=== PATIENT | male | born 1940 | race Caucasian/White ===

== ENCOUNTER 2020-12-23 13:02 | Day surgery (SDC) | payer MEDICARE, OTHER ==
[~2020-12-23] VITALS: Ht 175.3 cm; Wt 80.6 kg
[~2020-12-23 13:02] MED LIST: IBUP200; NAPR220; ROSU5; SULTRIDS PO
[2020-12-23] MEDS ORDERED: TAMS.4ER (14:02)
[2020-12-23] MEDS ORDERED: EUTHYROX50 MCG (14:02)
[2020-12-23] MEDS ORDERED: OMEP20ER (14:04)
== END 2020-12-23 15:00 | disposition home or self-care (01) ==
LOC: ORSCSDS 13:02
PROVIDERS: Internal Medicine Gastroenterology
PROC: 0D758ZZ Dilation of Esophagus, Via Natural or Artificial Opening Endoscopic (ICD-10-PCS; principal; 2020-12-23 14:45)
PROC: 0DB58ZX Excision of Esophagus, Via Natural or Artificial Opening Endoscopic, Diagnostic (ICD-10-PCS; principal; 2020-12-23 14:45)
DX: R13.10 Dysphagia, unspecified (principal); E78.5 Hyperlipidemia, unspecified; E03.9 Hypothyroidism, unspecified; K20.90 Esophagitis, unspecified without bleeding; Z79.899 Other long term (current) drug therapy
CPT/HCPCS: 88305; J0330; J0461; J2405; J2704; J7120

== ENCOUNTER 2022-10-18 07:07 | Inpatient (IN) | payer MEDICARE, OTHER ==
[2022-10-18] VITALS (7 sets, daily range): BP systolic 131–165; BP diastolic 63–87
[~2022-10-18] VITALS: Ht 177.8 cm; Wt 77.6 kg
[~2022-10-18 07:07] MED LIST changes: +LEVSOD100 PO; +OCUFLOX510 RIGHTEYE; +OMEP20ER PO; +TAMS.4ER
[2022-10-18] MEDS ORDERED: Oxybutynin Chlo15 MG PO (08:10)
[2022-10-18] MEDS ORDERED: LATANOPROST2.5 M3 (08:11)
[2022-10-18] MEDS ORDERED: BRIMONIDINE TART5 M2 (08:11)
[2022-10-18 08:21] LABS: Hematocrit 20.5 % (37.0-53.0); Hemoglobin 6.3 g/dL (13.5-17.5); Mean Corpuscular HGB 28.3 pg (26.0-34.0); Mean Corpuscular HGB Conc 30.7 g/dL (31.5-36.5); Mean Corpuscular Volume 92 fL (80-100); Mean Platelet Volume 9.8 fL (9.1-12.4); Platelet Count 175 K/mm3 (150-400); RDW Coefficient Variation 18.4 % (11.7-14.2); RDW Standard Deviation 56.1 fL (35.1-46.3); Red Blood Cell Count 2.23 M/mm3 (4.30-5.90)
[2022-10-18 08:27] LABS: Albumin, Blood 3.3 g/dL (3.4-5.0); Albumin/Globulin Ratio 1.1 (0.8-1.8); Bilirubin, Total 0.7 mg/dL (0.1-1.0); Calcium, Blood 8.2 mg/dL (8.5-10.1); Creatinine, Blood 1.66 mg/dL (0.60-1.20); Globulin, Blood 3.1 g/dL (2.2-4.0); Potassium, Blood 3.5 mmol/L (3.5-5.5); Total Protein, Blood 6.4 g/dL (6.4-8.2)
[2022-10-18 08:44] LABS: BAND PERCENT MAN 18 % (0-8); BASOPHILS PERCENT MAN 0 % (0-2); BLASTS PERCENT MAN 2 % (0-0); EOSINOPHILS PERCENT MAN 0 % (0-6); LYMPHOCYTES PERCENT MAN 7 % (21-46); METAMYELOCYTE PERCENT MAN 6 % (0-0); MONOCYTES PERCENT MAN 2 % (4-13); MYELOCYTE PERCENT MAN 14 % (0-0); PROMYELOCYTE PERCENT MAN 2 % (0-0); SEG NEUTROPHILS PERCENT MAN 49 % (41-73); TOTAL CELLS COUNTED 100
[2022-10-18 08:47] LABS: NEUTROPHILS ABSOLUTE MAN 75.56 K/mm3 (1.96-9.15)
[2022-10-18 08:50] LABS: LYMPHOCYTES ABSOLUTE MAN 7.89 K/mm3 (0.84-5.20); METAMYELOCYTE ABSOLUTE MAN 6.76 K/mm3 (0.00-0.00); MONOCYTES ABSOLUTE MAN 2.25 K/mm3 (0.16-1.47); MYELOCYTE ABSOLUTE MAN 15.78 K/mm3 (0.00-0.00); PROMYELOCYTE ABSOLUTE MAN 2.25 K/mm3 (0.00-0.00); White Blood Cell Count 112.78 K/mm3 (4.00-11.30)
[2022-10-18 08:56] LABS: Free Thyroxine 1.38 ng/dL (0.70-1.60); Thyroid Stimulating Hormone 3.63 uIU/mL (0.360-4.800); Triiodothyronine, Free 2.03 pg/mL (2.18-3.98)
[2022-10-18 10:45] LABS: International Normalized Ratio 1.14; Prothrombin Time Results 11.9 Sec (9.7-11.5)
--- NOTE | 2022-10-18 13:00 | NUR ---
pt arrived to 206 via wheelchair from ED, in attendence, pt a/ox4, pleasant and cooperative with care, follows commands well, denies pain, just sob with activity, and has lost about ten pounds in the last few months, lungs are clear t/o, resp even and unlabored, no cough noted, hrr, no edema noted, piv is clear and patent, btx4, abd flat soft nontender, voids without diff, skin c/w/d, norm, jania, oriented to room layout and call system.
--- NOTE | 2022-10-18 17:40 | NUR ---
Started blood transfusion, after going over risks and need to call nurse if any acute changes, and what to look for, consent was signed, v.s. stable, did have an elevated temp, but room was very warm, he is sitting up on the side of the bed eating dinner, spouce at bedside. call light in reach.
--- NOTE | 2022-10-18 18:06 | NUR ---
pt tolerating transfusion, doing ok, no needs, ate dinner without diff, no acute changes, call light in reach.
[2022-10-19 04:28] VITALS: BP 149/76
--- NOTE | 2022-10-19 04:43 | NUR ---
SHIFT SUMMARY: RADHA IS A&OX4. VSS, NO ACUTE EVENTS OVERNIGHT. IV TO R AC PATENT. HE IS TOLERATING PO INTAKE WELL, INDEPENDENT IN THE ROOM, AND REPORTS URINATING WITHOUT DIFFICULTY. HE STATES THAT HE HAD A BM THE MORNING OF 10/18/22. HE IS LYING IN BED WITH THE CALL LIGHT IN REACH. WCTM UNTIL REPORT IS GIVEN TO DAY SHIFT RN.
[2022-10-19 05:24] LABS: Hematocrit 24.6 % (37.0-53.0); Hemoglobin 7.6 g/dL (13.5-17.5); Mean Corpuscular HGB 28.6 pg (26.0-34.0); Mean Corpuscular HGB Conc 30.9 g/dL (31.5-36.5); Mean Corpuscular Volume 93 fL (80-100); Mean Platelet Volume 9.4 fL (9.1-12.4); NRBC ABSOLUTE 5.89 K/mm3 (0.00-0.02); NRBC Auto 5.1 /100 WBC (0.0-0.2); Platelet Count 161 K/mm3 (150-400); RDW Coefficient Variation 18.1 % (11.7-14.2); Red Blood Cell Count 2.66 M/mm3 (4.30-5.90)
[2022-10-19 05:37] LABS: White Blood Cell Count 116.07 K/mm3 (4.00-11.30)
[2022-10-19 05:50] LABS: BAND PERCENT MAN 4 % (0-8); BASOPHILS PERCENT MAN 0 % (0-2); BLASTS PERCENT MAN 8 % (0-0); EOSINOPHILS ABSOLUTE MAN 1.16 K/mm3 (0.00-0.68); EOSINOPHILS PERCENT MAN 1 % (0-6); LYMPHOCYTES ABSOLUTE MAN 2.32 K/mm3 (0.84-5.20); LYMPHOCYTES PERCENT MAN 2 % (21-46); MONOCYTES PERCENT MAN 0 % (4-13); MYELOCYTE ABSOLUTE MAN 31.33 K/mm3 (0.00-0.00); MYELOCYTE PERCENT MAN 27 % (0-0); NEUTROPHILS ABSOLUTE MAN 71.96 K/mm3 (1.96-9.15); SEG NEUTROPHILS PERCENT MAN 58 % (41-73); TOTAL CELLS COUNTED 100
[2022-10-19 05:53] LABS: Albumin, Blood 3.4 g/dL (3.4-5.0); Albumin/Globulin Ratio 1.1 (0.8-1.8); Bilirubin, Total 0.9 mg/dL (0.1-1.0); Bun/Creatinine Ratio 11.6 (12.0-20.0); Calcium, Blood 8.5 mg/dL (8.5-10.1); Creatinine, Blood 1.55 mg/dL (0.60-1.20); Globulin, Blood 3.1 g/dL (2.2-4.0); Potassium, Blood 3.5 mmol/L (3.5-5.5); Total Protein, Blood 6.5 g/dL (6.4-8.2)
[2022-10-19 07:39] VITALS: BP 150/68
--- NOTE | 2022-10-19 12:15 | NUR ---
THIS RN SPOKE W/ DR. WHITTINGTON PT SCHEDULED W/ ONCOLOGY ON WED. PLAN TO HYDRATE OVERNIGHT LIKELY DC TOMORROW W/ IMPROVED KIDNEY FUNCTION.
[2022-10-19 14:38] VITALS: BP 140/74
[2022-10-19 14:48] LABS: Performing Lab SYMBIODX; Test Name FLOW
--- NOTE | 2022-10-19 18:38 | NUR ---
SHIFT SUMMARY PT A&OX4 AND IN PLEASENT MOOD T/O SHIFT. NS @ 75 OVERNIGHT RECHECK KIDNEY FUNCTION IN AM. IND. TELE IN PLACE. TOLERATING PO INTAKE WELL. AT BEDSIDE T/O SHIFT. CALL LIGHT W/IN REACH. ONCOLOGY APPT SET FOR WED OUT PT- NOTIFIED.
[2022-10-19 19:35] VITALS: BP 153/75
[2022-10-20 03:01] VITALS: BP 147/73
--- NOTE | 2022-10-20 04:15 | NUR ---
INVESTIGATION DIVISION SERGEANT SUMMARY NO ACUTE EVENTS THIS SHIFT. A&OX4. PATIENT EFFECTIVELY COMMUNICATES NEEDS. VSS. RR EVEN AND UNLABORED ON RA. TELE REVEALS SINUS RHYTHM, HR 90'S. NS INFUSING @ 75ML/HR. NO PAIN REPORTED TO THIS RN. BED LOW AND LOCKED. CALL LIGHT WITHIN REACH. THIS RN WILL CONTINUE TO MONITOR.
[2022-10-20 05:09] LABS: Hemoglobin 7.4 g/dL (13.5-17.5); Mean Corpuscular HGB 28.4 pg (26.0-34.0); Mean Corpuscular HGB Conc 30.8 g/dL (31.5-36.5); Mean Corpuscular Volume 92 fL (80-100); Mean Platelet Volume 10.2 fL (9.1-12.4); NRBC ABSOLUTE 6.31 K/mm3 (0.00-0.02); NRBC Auto 5.1 /100 WBC (0.0-0.2); Platelet Count 163 K/mm3 (150-400); RDW Coefficient Variation 18.4 % (11.7-14.2); RDW Standard Deviation 57.6 fL (35.1-46.3); Red Blood Cell Count 2.61 M/mm3 (4.30-5.90)
[2022-10-20 05:18] LABS: White Blood Cell Count 124.48 K/mm3 (4.00-11.30)
[2022-10-20 05:33] LABS: Albumin, Blood 3.3 g/dL (3.4-5.0); Albumin/Globulin Ratio 1.1 (0.8-1.8); Bilirubin, Total 0.7 mg/dL (0.1-1.0); Bun/Creatinine Ratio 10.4 (12.0-20.0); Calcium, Blood 8.5 mg/dL (8.5-10.1); Creatinine, Blood 1.63 mg/dL (0.60-1.20); Globulin, Blood 3.1 g/dL (2.2-4.0); Magnesium, Blood 2.2 mg/dL (1.6-2.4); Phosphorus, Blood 4.5 mg/dL (2.5-4.9); Potassium, Blood 3.4 mmol/L (3.5-5.5); Total Protein, Blood 6.4 g/dL (6.4-8.2); Uric Acid, Blood 8.5 mg/dL (3.5-7.2)
[2022-10-20 05:41] LABS: BAND PERCENT MAN 5 % (0-8); BASOPHILS ABSOLUTE MAN 1.24 K/mm3 (0.00-0.23); BASOPHILS PERCENT MAN 1 % (0-2); BLASTS PERCENT MAN 6 % (0-0); EOSINOPHILS PERCENT MAN 0 % (0-6); LYMPHOCYTES ABSOLUTE MAN 4.97 K/mm3 (0.84-5.20); LYMPHOCYTES PERCENT MAN 4 % (21-46); METAMYELOCYTE ABSOLUTE MAN 14.93 K/mm3 (0.00-0.00); METAMYELOCYTE PERCENT MAN 12 % (0-0); MONOCYTES ABSOLUTE MAN 1.24 K/mm3 (0.16-1.47); MONOCYTES PERCENT MAN 1 % (4-13); MYELOCYTE ABSOLUTE MAN 23.65 K/mm3 (0.00-0.00); MYELOCYTE PERCENT MAN 19 % (0-0); PROMYELOCYTE ABSOLUTE MAN 1.24 K/mm3 (0.00-0.00); PROMYELOCYTE PERCENT MAN 1 % (0-0); SEG NEUTROPHILS PERCENT MAN 51 % (41-73); TOTAL CELLS COUNTED 100
[2022-10-20 07:29] VITALS: BP 141/75
[2022-10-20] MEDS ORDERED: CEFP200 PO (11:50)
[2022-10-20] MEDS ORDERED: AZIT500 PO (11:50)
--- NOTE | 2022-10-20 12:26 | NUR ---
DC SUMMARY; Tele and IV dc'd. All discharge instructions reviewed with return verbal understanding. Pt declined w/c trasfer to lobby. Ambulated with SO with steady gait.
== END 2022-10-20 12:35 | disposition home or self-care (01) | DRG 841 ==
LOC: ER 07:07 → MEDS 11:19
PROVIDERS: Hospitalist; Student in an Organized Health Care Education/Training Program; ADMIT Family Medicine
PROC: 30233N1 Transfusion of Nonautologous Red Blood Cells into Peripheral Vein, Percutaneous Approach (ICD-10-PCS; principal; 2022-10-20)
DX: C92.10 Chronic myeloid leukemia, BCR/ABL-positive, not having achieved remission (principal); N17.9 Acute kidney failure, unspecified; I48.91 Unspecified atrial fibrillation; E03.9 Hypothyroidism, unspecified; Z66 Do not resuscitate; K21.00 Gastro-esophageal reflux disease with esophagitis, without bleeding; I12.9 Hypertensive chronic kidney disease with stage 1 through stage 4 chronic kidney disease, or unspecified chronic kidney disease; N18.30 Chronic kidney disease, stage 3 unspecified; B95.61 Methicillin susceptible Staphylococcus aureus infection as the cause of diseases classified elsewhere; I49.3 Ventricular premature depolarization; Z68.24 Body mass index [BMI] 24.0-24.9, adult; R94.31 Abnormal electrocardiogram [ECG] [EKG]; R63.4 Abnormal weight loss; E78.5 Hyperlipidemia, unspecified; J42 Unspecified chronic bronchitis; M40.209 Unspecified kyphosis, site unspecified; D63.0 Anemia in neoplastic disease; M54.50 Low back pain, unspecified; M19.042 Primary osteoarthritis, left hand; M19.041 Primary osteoarthritis, right hand; R13.10 Dysphagia, unspecified; H91.90 Unspecified hearing loss, unspecified ear; N32.81 Overactive bladder; Z79.890 Hormone replacement therapy; N52.9 Male erectile dysfunction, unspecified; Z79.899 Other long term (current) drug therapy; Z92.3 Personal history of irradiation; Z86.010 Personal history of colon polyps; Z98.1 Arthrodesis status; Z85.46 Personal history of malignant neoplasm of prostate; Z98.890 Other specified postprocedural states
CPT/HCPCS: 36415; 36430; 71046; 76770; 80053; 82436; 83735; 83880; 84100; 84300; 84439; 84443; 84481; 84550; 85025; 85610; 85730; 86850; 86900; 86901; 86923; 87070; 87077; 87147; 87186; 87205; 93005; 93010; 93306; 96365; 96366; 97110; 97162; 97530; 99285-25; A9270; J0456; J0696; J3475; J7030; J7040; J7050; P9016

== ENCOUNTER 2022-11-19 11:12 | Day surgery (SDC) | payer MEDICARE, OTHER ==
[2022-11-19] VITALS (7 sets, daily range): BP systolic 124–146; BP diastolic 48–69
[~2022-11-19 11:12] MED LIST changes: +AZIT500 PO; +BRIMONIDINE TART5 M2; +CEFP200 PO; +LATANOPROST2.5 M3; +Oxybutynin Chlo15 MG PO
== END 2022-11-19 17:36 | disposition home or self-care (01) ==
LOC: ATC 11:12
DX: C92.10 Chronic myeloid leukemia, BCR/ABL-positive, not having achieved remission (principal); K21.9 Gastro-esophageal reflux disease without esophagitis; E78.5 Hyperlipidemia, unspecified; E03.9 Hypothyroidism, unspecified; Z79.890 Hormone replacement therapy; Z87.891 Personal history of nicotine dependence; Z79.899 Other long term (current) drug therapy
CPT/HCPCS: 36430; 86850; 86900; 86901; 86923; J7050; P9016

== ENCOUNTER 2022-11-23 00:15 | Day surgery (SDC) | payer MEDICARE, OTHER ==
[2022-11-23] VITALS (7 sets, daily range): BP systolic 115–137; BP diastolic 52–68
[2022-11-23 12:20] LABS: NRBC Auto 2.8 /100 WBC (0.0-0.2)
[2022-11-23 12:27] LABS: Hematocrit 20.7 % (37.0-53.0); Hemoglobin 6.4 g/dL (13.5-17.5); Mean Corpuscular HGB 31.1 pg (26.0-34.0); Mean Corpuscular HGB Conc 30.9 g/dL (31.5-36.5); Mean Corpuscular Volume 101 fL (80-100); Mean Platelet Volume 10.7 fL (9.1-12.4); NRBC ABSOLUTE 6.68 K/mm3 (0.00-0.02); Platelet Count 172 K/mm3 (150-400); RDW Coefficient Variation 22.9 % (11.7-14.2); RDW Standard Deviation 72.1 fL (35.1-46.3); Red Blood Cell Count 2.06 M/mm3 (4.30-5.90)
[2022-11-23 12:49] LABS: White Blood Cell Count 242.81 K/mm3 (4.00-11.30)
[2022-11-23 15:59] LABS: BAND PERCENT MAN 9 % (0-8); BASOPHILS PERCENT MAN 0 % (0-2); BLASTS PERCENT MAN 4 % (0-0); EOSINOPHILS PERCENT MAN 0 % (0-6); LYMPHOCYTES ABSOLUTE MAN 12.14 K/mm3 (0.84-5.20); LYMPHOCYTES PERCENT MAN 5 % (21-46); MONOCYTES PERCENT MAN 0 % (4-13); MYELOCYTE PERCENT MAN 50 % (0-0); NEUTROPHILS ABSOLUTE MAN 94.69 K/mm3 (1.96-9.15); PROMYELOCYTE ABSOLUTE MAN 4.85 K/mm3 (0.00-0.00); PROMYELOCYTE PERCENT MAN 2 % (0-0); SEG NEUTROPHILS PERCENT MAN 30 % (41-73); TOTAL CELLS COUNTED 100
== END 2022-11-23 18:04 | disposition home or self-care (01) ==
LOC: ATC 00:15
PROVIDERS: Internal Medicine Hematology & Oncology
DX: C92.10 Chronic myeloid leukemia, BCR/ABL-positive, not having achieved remission (principal); K21.9 Gastro-esophageal reflux disease without esophagitis; E03.9 Hypothyroidism, unspecified
CPT/HCPCS: 36415; 85025; 86850; 86900; 86901; 86923; J7050; P9016

== ENCOUNTER 2022-12-03 03:44 | Day surgery (SDC) | payer MEDICARE, OTHER ==
[2022-12-01 13:30] LABS: Hematocrit 22.9 % (37.0-53.0); Hemoglobin 7.2 g/dL (13.5-17.5); Mean Corpuscular HGB 29.6 pg (26.0-34.0); Mean Corpuscular HGB Conc 31.4 g/dL (31.5-36.5); Mean Corpuscular Volume 94 fL (80-100); Mean Platelet Volume 11.1 fL (9.1-12.4); NRBC ABSOLUTE 0.45 K/mm3 (0.00-0.02); NRBC Auto 0.6 /100 WBC (0.0-0.2); Platelet Count 181 K/mm3 (150-400); RDW Standard Deviation 65.7 fL (35.1-46.3); Red Blood Cell Count 2.43 M/mm3 (4.30-5.90)
[2022-12-01 13:53] LABS: BAND PERCENT MAN 2 % (0-8); BASOPHILS PERCENT MAN 0 % (0-2); EOSINOPHILS PERCENT MAN 0 % (0-6); LYMPHOCYTES % ATYPICAL MANUAL 2 % (0-0); LYMPHOCYTES PERCENT MAN 6 % (21-46); METAMYELOCYTE PERCENT MAN 7 % (0-0); MONOCYTES PERCENT MAN 1 % (4-13); MYELOCYTE PERCENT MAN 19 % (0-0); PROMYELOCYTE PERCENT MAN 2 % (0-0); SEG NEUTROPHILS PERCENT MAN 61 % (41-73); TOTAL CELLS COUNTED 100
[2022-12-01 13:54] LABS: White Blood Cell Count 76.43 K/mm3 (4.00-11.30)
[2022-12-03 13:33] VITALS: BP 115/63
[2022-12-03 13:51] VITALS: BP 117/66
[2022-12-03 14:52] VITALS: BP 131/63
[2022-12-03 15:20] VITALS: BP 116/56
== END 2022-12-03 16:45 | disposition home or self-care (01) ==
LOC: ATC 03:44 → EDSTATUS 13:15 → ATC 16:45
PROVIDERS: Internal Medicine Hematology & Oncology
DX: C92.10 Chronic myeloid leukemia, BCR/ABL-positive, not having achieved remission (principal); K21.9 Gastro-esophageal reflux disease without esophagitis; E03.9 Hypothyroidism, unspecified; E78.5 Hyperlipidemia, unspecified; Z87.891 Personal history of nicotine dependence; Z79.890 Hormone replacement therapy; Z79.899 Other long term (current) drug therapy
CPT/HCPCS: 36415; 36430; 85025; 86850; 86900; 86901; 86923; J7050; P9016

== ENCOUNTER 2022-12-07 14:12 | Day surgery (SDC) | payer MEDICARE, OTHER ==
[2022-12-07 14:20] VITALS: BP 138/69
[2022-12-07 14:55] LABS: Hematocrit 23.3 % (37.0-53.0); Hemoglobin 7.7 g/dL (13.5-17.5); Mean Corpuscular HGB 29.6 pg (26.0-34.0); Mean Corpuscular Volume 90 fL (80-100); Mean Platelet Volume 11.9 fL (9.1-12.4); Platelet Count 146 K/mm3 (150-400); RDW Coefficient Variation 18.4 % (11.7-14.2); RDW Standard Deviation 58.6 fL (35.1-46.3); White Blood Cell Count 6.93 K/mm3 (4.00-11.30)
[2022-12-07 15:39] LABS: BAND PERCENT MAN 22 % (0-8); BASOPHILS ABSOLUTE MAN 0.13 K/mm3 (0.00-0.23); BASOPHILS PERCENT MAN 2 % (0-2); EOSINOPHILS ABSOLUTE MAN 0.13 K/mm3 (0.00-0.68); EOSINOPHILS PERCENT MAN 2 % (0-6); LYMPHOCYTES ABSOLUTE MAN 0.41 K/mm3 (0.84-5.20); LYMPHOCYTES PERCENT MAN 6 % (21-46); METAMYELOCYTE ABSOLUTE MAN 0.13 K/mm3 (0.00-0.00); METAMYELOCYTE PERCENT MAN 2 % (0-0); MONOCYTES ABSOLUTE MAN 0.06 K/mm3 (0.16-1.47); MONOCYTES PERCENT MAN 1 % (4-13); MYELOCYTE ABSOLUTE MAN 0.69 K/mm3 (0.00-0.00); MYELOCYTE PERCENT MAN 10 % (0-0); NEUTROPHILS ABSOLUTE MAN 5.33 K/mm3 (1.96-9.15); SEG NEUTROPHILS PERCENT MAN 55 % (41-73); TOTAL CELLS COUNTED 100
== END 2022-12-07 14:29 | disposition home or self-care (01) ==
LOC: ATC 14:12
PROVIDERS: Internal Medicine Hematology & Oncology
DX: C92.00 Acute myeloblastic leukemia, not having achieved remission (principal); Z87.891 Personal history of nicotine dependence
CPT/HCPCS: 36592; 85025

== ENCOUNTER 2022-12-15 01:43 | Day surgery (SDC) | payer MEDICARE, OTHER ==
[2022-12-14 11:03] VITALS: BP 130/65
[2022-12-14 11:24] LABS: Hematocrit 18.1 % (37.0-53.0); Mean Corpuscular HGB 29.7 pg (26.0-34.0); Mean Corpuscular HGB Conc 33.1 g/dL (31.5-36.5); Mean Corpuscular Volume 90 fL (80-100); Mean Platelet Volume 10.8 fL (9.1-12.4); Platelet Count 75 K/mm3 (150-400); RDW Coefficient Variation 16.1 % (11.7-14.2); RDW Standard Deviation 52.4 fL (35.1-46.3); Red Blood Cell Count 2.02 M/mm3 (4.30-5.90)
[2022-12-14 13:20] LABS: BASOPHILS PERCENT AUTO 0 % (0-2); EOSINOPHILS ABSOLUTE AUTO 0.02 K/mm3 (0.00-0.68); EOSINOPHILS PERCENT AUTO 3 % (0-6); IMMATURE GRAN ABSOLUTE AUTO 0.01 K/mm3 (0.00-0.10); IMMATURE GRAN PERCENT AUTO 1 % (0-1); LYMPHOCYTES ABSOLUTE AUTO 0.23 K/mm3 (0.84-5.20); LYMPHOCYTES PERCENT AUTO 28 % (21-46); MONOCYTES ABSOLUTE AUTO 0.11 K/mm3 (0.16-1.47); MONOCYTES PERCENT AUTO 14 % (4-13); NEUTROPHILS ABSOLUTE AUTO 0.44 K/mm3 (1.96-9.15); NEUTROPHILS PERCENT AUTO 54 % (41-73)
[2022-12-14 13:21] LABS: White Blood Cell Count 0.81 K/mm3 (4.00-11.30)
[2022-12-15] VITALS (7 sets, daily range): BP systolic 111–146; BP diastolic 51–71
== END 2022-12-15 16:51 | disposition home or self-care (01) ==
LOC: LAB 01:43 → ATC 01:43
PROVIDERS: Internal Medicine Hematology & Oncology
DX: C92.00 Acute myeloblastic leukemia, not having achieved remission (principal); K21.9 Gastro-esophageal reflux disease without esophagitis; E03.9 Hypothyroidism, unspecified; E78.5 Hyperlipidemia, unspecified; Z87.891 Personal history of nicotine dependence; Z79.890 Hormone replacement therapy; Z79.899 Other long term (current) drug therapy
CPT/HCPCS: 36430; 36592; 85025; 86850; 86900; 86901; 86923; J7050; P9016

== ENCOUNTER 2022-12-22 01:33 | Day surgery (SDC) | payer MEDICARE, OTHER ==
[2022-12-21 13:20] VITALS: BP 127/46
[2022-12-21 14:59] LABS: Mean Corpuscular HGB 28.6 pg (26.0-34.0); Mean Corpuscular HGB Conc 32.5 g/dL (31.5-36.5); Mean Corpuscular Volume 88 fL (80-100); Mean Platelet Volume 11.3 fL (9.1-12.4); RDW Coefficient Variation 15.9 % (11.7-14.2); RDW Standard Deviation 51.1 fL (35.1-46.3); Red Blood Cell Count 1.85 M/mm3 (4.30-5.90)
[2022-12-21 15:08] LABS: Hematocrit 16.3 % (37.0-53.0); Hemoglobin 5.3 g/dL (13.5-17.5); Platelet Count 23 K/mm3 (150-400); White Blood Cell Count 0.51 K/mm3 (4.00-11.30)
[2022-12-21 15:32] LABS: BAND PERCENT MAN 2 % (0-8); BASOPHILS PERCENT MAN 0 % (0-2); EOSINOPHILS ABSOLUTE MAN 0.02 K/mm3 (0.00-0.68); EOSINOPHILS PERCENT MAN 4 % (0-6); LYMPHOCYTES % ATYPICAL MANUAL 1 % (0-0); LYMPHOCYTES ABSOLUTE MAN 0.09 K/mm3 (0.84-5.20); LYMPHOCYTES PERCENT MAN 17 % (21-46); METAMYELOCYTE PERCENT MAN 1 % (0-0); MONOCYTES ABSOLUTE MAN 0.02 K/mm3 (0.16-1.47); MONOCYTES PERCENT MAN 4 % (4-13); MYELOCYTE ABSOLUTE MAN 0.01 K/mm3 (0.00-0.00); MYELOCYTE PERCENT MAN 3 % (0-0); NEUTROPHILS ABSOLUTE MAN 0.35 K/mm3 (1.96-9.15); SEG NEUTROPHILS PERCENT MAN 68 % (41-73); TOTAL CELLS COUNTED 100
[2022-12-22] VITALS (7 sets, daily range): BP systolic 118–154; BP diastolic 55–91
== END 2022-12-22 16:51 | disposition home or self-care (01) ==
LOC: ATC 01:33 → LAB 01:33 → ATC 13:30
PROVIDERS: Internal Medicine Hematology & Oncology
DX: C92.00 Acute myeloblastic leukemia, not having achieved remission (principal); K21.9 Gastro-esophageal reflux disease without esophagitis; E78.5 Hyperlipidemia, unspecified; E03.9 Hypothyroidism, unspecified; Z87.891 Personal history of nicotine dependence; Z79.890 Hormone replacement therapy; Z79.899 Other long term (current) drug therapy
CPT/HCPCS: 36430; 36592; 85025; 86850; 86900; 86901; 86923; J7050; P9016

== ENCOUNTER 2022-12-28 00:35 | Day surgery (SDC) | payer MEDICARE, OTHER ==
[2022-12-28] VITALS (8 sets, daily range): BP systolic 127–144; BP diastolic 53–95
[2022-12-28 09:06] LABS: Mean Corpuscular HGB 28.7 pg (26.0-34.0); Mean Corpuscular HGB Conc 32.2 g/dL (31.5-36.5); Mean Corpuscular Volume 89 fL (80-100); RDW Coefficient Variation 14.9 % (11.7-14.2); RDW Standard Deviation 48.6 fL (35.1-46.3); Red Blood Cell Count 1.71 M/mm3 (4.30-5.90)
[2022-12-28 09:17] LABS: White Blood Cell Count 0.42 K/mm3 (4.00-11.30)
[2022-12-28 09:20] LABS: Hematocrit 15.2 % (37.0-53.0); Hemoglobin 4.9 g/dL (13.5-17.5)
[2022-12-28 09:21] LABS: Platelet Count 3 K/mm3 (150-400)
[2022-12-28 09:36] LABS: BASOPHILS PERCENT MAN 0 % (0-2); EOSINOPHILS ABSOLUTE MAN 0.01 K/mm3 (0.00-0.68); EOSINOPHILS PERCENT MAN 4 % (0-6); LYMPHOCYTES ABSOLUTE MAN 0.08 K/mm3 (0.84-5.20); LYMPHOCYTES PERCENT MAN 20 % (21-46); MONOCYTES PERCENT MAN 0 % (4-13); NEUTROPHILS ABSOLUTE MAN 0.31 K/mm3 (1.96-9.15); SEG NEUTROPHILS PERCENT MAN 76 % (41-73); TOTAL CELLS COUNTED 25
== END 2022-12-28 17:43 | disposition home or self-care (01) ==
LOC: ATC 00:35
PROVIDERS: Internal Medicine Hematology & Oncology
DX: C92.00 Acute myeloblastic leukemia, not having achieved remission (principal); Z87.891 Personal history of nicotine dependence; K21.9 Gastro-esophageal reflux disease without esophagitis; E78.5 Hyperlipidemia, unspecified; E03.9 Hypothyroidism, unspecified; D63.0 Anemia in neoplastic disease
CPT/HCPCS: 36430; 36592; 85025; 86850; 86900; 86901; 86923; J7050; P9016; P9035

== ENCOUNTER 2023-01-03 14:28 | Emergency (ER) | payer MEDICARE, OTHER ==
[~2023-01-03] VITALS: Ht 175.3 cm; Wt 73.5 kg
[2023-01-03 15:20] LABS: Mean Corpuscular HGB 29.4 pg (26.0-34.0); Mean Corpuscular HGB Conc 35.9 g/dL (31.5-36.5); Mean Corpuscular Volume 82 fL (80-100); RDW Coefficient Variation 14.9 % (11.7-14.2); RDW Standard Deviation 44.8 fL (35.1-46.3)
[2023-01-03 15:21] LABS: Albumin, Blood 3.4 g/dL (3.4-5.0); Albumin/Globulin Ratio 1.2 (0.8-1.8); Bilirubin, Total 0.7 mg/dL (0.1-1.0); Bun/Creatinine Ratio 34.1 (12.0-20.0); Calcium, Blood 8.5 mg/dL (8.5-10.1); Creatinine, Blood 1.32 mg/dL (0.60-1.20); Globulin, Blood 2.8 g/dL (2.2-4.0); Potassium, Blood 4.1 mmol/L (3.5-5.5); Total Protein, Blood 6.2 g/dL (6.4-8.2)
[2023-01-03 15:23] LABS: Hematocrit 13.1 % (37.0-53.0); Hemoglobin 4.7 g/dL (13.5-17.5); Platelet Count 2 K/mm3 (150-400); White Blood Cell Count 0.39 K/mm3 (4.00-11.30)
[2023-01-03 15:46] LABS: BASOPHILS PERCENT MAN 0 % (0-2); EOSINOPHILS PERCENT MAN 0 % (0-6); LYMPHOCYTES ABSOLUTE MAN 0.19 K/mm3 (0.84-5.20); LYMPHOCYTES PERCENT MAN 50 % (21-46); MONOCYTES PERCENT MAN 0 % (4-13); NEUTROPHILS ABSOLUTE MAN 0.19 K/mm3 (1.96-9.15); SEG NEUTROPHILS PERCENT MAN 50 % (41-73); TOTAL CELLS COUNTED 30
[2023-01-03] MEDS ORDERED: DIFLUCAN100 MG PO (15:59)
[2023-01-03] MEDS ORDERED: [UNRECOGNIZED DRUG - CODE] PO (15:59)
[2023-01-03] MEDS ORDERED: ACYCLOVIR400 MG PO (15:59)
[2023-01-03 23:40] VITALS: BP 135/7
== END 2023-01-03 23:43 | disposition home or self-care (01) ==
LOC: ER 14:28
PROVIDERS: Student in an Organized Health Care Education/Training Program
DX: D61.818 Other pancytopenia (principal); Z79.899 Other long term (current) drug therapy
CPT/HCPCS: 36430; 80053; 85025; 86850; 86900; 86901; 86923; 96374; 99284-25; J2405; J7030; P9016; P9035

== ENCOUNTER 2023-01-07 13:07 | Day surgery (SDC) | payer MEDICARE, OTHER ==
[2023-01-05 08:06] VITALS: BP 124/59
[2023-01-05 09:27] LABS: Hemoglobin 6.1 g/dL (13.5-17.5); Mean Corpuscular HGB Conc 34.5 g/dL (31.5-36.5); Mean Corpuscular Volume 84 fL (80-100); Mean Platelet Volume 11.1 fL (9.1-12.4); RDW Coefficient Variation 14.7 % (11.7-14.2); RDW Standard Deviation 45.5 fL (35.1-46.3)
[2023-01-05 09:31] LABS: Hematocrit 17.7 % (37.0-53.0); Platelet Count 16 K/mm3 (150-400); White Blood Cell Count 0.21 K/mm3 (4.00-11.30)
[2023-01-05 10:09] LABS: BAND PERCENT MAN 4 % (0-8); BASOPHILS PERCENT MAN 0 % (0-2); EOSINOPHILS PERCENT MAN 0 % (0-6); LYMPHOCYTES PERCENT MAN 48 % (21-46); MONOCYTES PERCENT MAN 0 % (4-13); SEG NEUTROPHILS PERCENT MAN 48 % (41-73); TOTAL CELLS COUNTED 25
[2023-01-07] VITALS (9 sets, daily range): BP systolic 124–162; BP diastolic 51–70
[~2023-01-07 13:07] MED LIST changes: +ACYCLOVIR400 MG PO; +DIFLUCAN100 MG PO; +[UNRECOGNIZED DRUG - CODE] PO
== END 2023-01-07 17:57 | disposition home or self-care (01) ==
LOC: ATC 13:07
PROVIDERS: Internal Medicine Hematology & Oncology
DX: C92.00 Acute myeloblastic leukemia, not having achieved remission (principal); D63.0 Anemia in neoplastic disease; K21.9 Gastro-esophageal reflux disease without esophagitis; E78.5 Hyperlipidemia, unspecified; E03.9 Hypothyroidism, unspecified; Z87.891 Personal history of nicotine dependence; Z79.890 Hormone replacement therapy; Z79.899 Other long term (current) drug therapy
CPT/HCPCS: 36430; 36592; 85025; 86850; 86900; 86901; 86920; J7050; P9016; P9053

== ENCOUNTER 2023-01-12 11:29 | Day surgery (SDC) | payer MEDICARE, OTHER ==
[2023-01-11 15:25] VITALS: BP 143/69
[2023-01-11 15:55] LABS: Hemoglobin 6.2 g/dL (13.5-17.5); Mean Corpuscular HGB 29.4 pg (26.0-34.0); Mean Corpuscular HGB Conc 34.4 g/dL (31.5-36.5); Mean Corpuscular Volume 85 fL (80-100); RDW Coefficient Variation 14.1 % (11.7-14.2); RDW Standard Deviation 44.1 fL (35.1-46.3); Red Blood Cell Count 2.11 M/mm3 (4.30-5.90)
[2023-01-11 16:03] LABS: White Blood Cell Count 0.23 K/mm3 (4.00-11.30)
[2023-01-11 16:04] LABS: Platelet Count 1 K/mm3 (150-400)
[2023-01-11 16:27] LABS: BAND PERCENT MAN 4 % (0-8); BASOPHILS PERCENT MAN 0 % (0-2); EOSINOPHILS PERCENT MAN 4 % (0-6); LYMPHOCYTES ABSOLUTE MAN 0.11 K/mm3 (0.84-5.20); LYMPHOCYTES PERCENT MAN 50 % (21-46); MONOCYTES PERCENT MAN 0 % (4-13); SEG NEUTROPHILS PERCENT MAN 42 % (41-73); TOTAL CELLS COUNTED 50
[2023-01-12 15:12] VITALS: BP 123/59
[2023-01-12 15:29] VITALS: BP 120/51
[2023-01-12 16:23] VITALS: BP 133/59
[2023-01-12 16:47] VITALS: BP 139/68
[2023-01-12 17:54] VITALS: BP 140/66
== END 2023-01-12 18:00 | disposition home or self-care (01) ==
LOC: ATC 11:29
PROVIDERS: Internal Medicine Hematology & Oncology
DX: C92.00 Acute myeloblastic leukemia, not having achieved remission (principal); D63.0 Anemia in neoplastic disease
CPT/HCPCS: 36430; 36592; 85025; 86850; 86900; 86901; 86923; J7050; P9016; P9053

== ENCOUNTER 2023-01-15 00:41 | Day surgery (SDC) | payer MEDICARE, OTHER ==
[2023-01-14 09:03] VITALS: BP 141/75
[2023-01-14 09:41] LABS: Source, Urine Voided
[2023-01-14 09:44] LABS: Mean Corpuscular HGB 29.5 pg (26.0-34.0); Mean Corpuscular HGB Conc 34.1 g/dL (31.5-36.5); Mean Corpuscular Volume 87 fL (80-100); Mean Platelet Volume 10.4 fL (9.1-12.4); RDW Coefficient Variation 13.9 % (11.7-14.2); RDW Standard Deviation 43.8 fL (35.1-46.3)
[2023-01-14 09:46] LABS: Appearance, Urine Clear (Clear); Bilirubin, Urine Neg (Neg); Blood, Urine 4+ (Neg); Color, Urine Yellow (P-Yellow); Glucose Qualitative, Urine Neg (Neg); Ketones, Urine Neg (Neg); Leukocyte Esterase, Urine Neg (Neg); Nitrite, Urine Neg (Neg); Protein, Urine Neg (Neg); Urobilinogen, Urine NORM (Normal)
[2023-01-14 09:50] LABS: Hematocrit 17.3 % (37.0-53.0); Hemoglobin 5.9 g/dL (13.5-17.5); Platelet Count 14 K/mm3 (150-400); White Blood Cell Count 0.17 K/mm3 (4.00-11.30)
[2023-01-14 09:54] LABS: Bacteria Rare /hpf; Squamous Epithelial Cells Not Seen /hpf (Few); White Blood Cells, Urine Not Seen /hpf (0-5)
[2023-01-14 10:11] LABS: Albumin, Blood 3.2 g/dL (3.4-5.0); Bilirubin, Total 0.8 mg/dL (0.1-1.0); Bun/Creatinine Ratio 30.8 (12.0-20.0); Calcium, Blood 8.5 mg/dL (8.5-10.1); Creatinine, Blood 1.04 mg/dL (0.60-1.20); Globulin, Blood 3.1 g/dL (2.2-4.0); Phosphorus, Blood 4.8 mg/dL (2.5-4.9); Potassium, Blood 4.1 mmol/L (3.5-5.5); Total Protein, Blood 6.3 g/dL (6.4-8.2); Uric Acid, Blood 3.6 mg/dL (3.5-7.2)
[2023-01-14 10:11] LABS: BASOPHILS PERCENT MAN 0 % (0-2); EOSINOPHILS PERCENT MAN 0 % (0-6); LYMPHOCYTES PERCENT MAN 60 % (21-46); MONOCYTES PERCENT MAN 4 % (4-13); NEUTROPHILS ABSOLUTE MAN 0.06 K/mm3 (1.96-9.15); SEG NEUTROPHILS PERCENT MAN 36 % (41-73); TOTAL CELLS COUNTED 25
[2023-01-14 10:15] LABS: Creatinine, Urine Random 68.4 mg/dL (27.00-270.00); Protein, Urine Random 18.6 mg/dL (0.0-11.9); Protein/Creat Ratio, Ur Random 0.3
[2023-01-15] VITALS (7 sets, daily range): BP systolic 132–159; BP diastolic 47–90
[2023-01-16 04:09] LABS: COMPLEMENT C3, SERUM 119 mg/dL (82-167); COMPLEMENT C4, SERUM 24 mg/dL (12-38)
[2023-01-18 17:09] LABS: IMMUNOGLOBULIN A, QN, SERUM 215 mg/dL (61-437); IMMUNOGLOBULIN G, QN, SERUM 1068 mg/dL (603-1613); IMMUNOGLOBULIN M, QN, SERUM 46 mg/dL (15-143)
== END 2023-01-15 17:26 | disposition home or self-care (01) ==
LOC: ATC 00:41
PROVIDERS: Hospitalist; Internal Medicine Hematology & Oncology
DX: C92.00 Acute myeloblastic leukemia, not having achieved remission (principal)
CPT/HCPCS: 36430; 36592; 80053; 81001; 82570; 83516; 84100; 84156; 84550; 85025; 86036; 86160; 86334; 86850; 86900; 86901; 86923; J7050; P9016

== ENCOUNTER 2023-01-18 00:50 | Day surgery (SDC) | payer MEDICARE, OTHER ==
[2023-01-18] VITALS (7 sets, daily range): BP systolic 126–156; BP diastolic 57–88
[2023-01-18 11:07] LABS: Hematocrit 19.8 % (37.0-53.0); Hemoglobin 6.8 g/dL (13.5-17.5); Mean Corpuscular HGB 29.3 pg (26.0-34.0); Mean Corpuscular HGB Conc 34.3 g/dL (31.5-36.5); Mean Corpuscular Volume 85 fL (80-100); RDW Coefficient Variation 13.5 % (11.7-14.2); RDW Standard Deviation 42.5 fL (35.1-46.3); Red Blood Cell Count 2.32 M/mm3 (4.30-5.90)
[2023-01-18 11:24] LABS: Platelet Count 2 K/mm3 (150-400); White Blood Cell Count 0.15 K/mm3 (4.00-11.30)
[2023-01-18 11:41] LABS: BASOPHILS PERCENT MAN 0 % (0-2); EOSINOPHILS PERCENT MAN 5 % (0-6); LYMPHOCYTES ABSOLUTE MAN 0.12 K/mm3 (0.84-5.20); LYMPHOCYTES PERCENT MAN 80 % (21-46); MONOCYTES PERCENT MAN 0 % (4-13); NEUTROPHILS ABSOLUTE MAN 0.02 K/mm3 (1.96-9.15); SEG NEUTROPHILS PERCENT MAN 15 % (41-73); TOTAL CELLS COUNTED 20
== END 2023-01-18 17:40 | disposition home or self-care (01) ==
LOC: LAB 00:50 → ATC 00:50
PROVIDERS: Internal Medicine Hematology & Oncology
DX: C92.00 Acute myeloblastic leukemia, not having achieved remission (principal); N18.4 Chronic kidney disease, stage 4 (severe)
CPT/HCPCS: 36430; 85025; 86850; 86900; 86901; 86923; J7050; P9016; P9053

== ENCOUNTER 2023-01-21 01:57 | Day surgery (SDC) | payer MEDICARE, OTHER ==
[2023-01-20 08:42] VITALS: BP 149/72
[2023-01-20 08:55] LABS: Hematocrit 20.6 % (37.0-53.0); Hemoglobin 7.1 g/dL (13.5-17.5); Mean Corpuscular HGB 29.7 pg (26.0-34.0); Mean Corpuscular HGB Conc 34.5 g/dL (31.5-36.5); Mean Corpuscular Volume 86 fL (80-100); Mean Platelet Volume 9.7 fL (9.1-12.4); RDW Coefficient Variation 13.4 % (11.7-14.2); RDW Standard Deviation 42.4 fL (35.1-46.3); Red Blood Cell Count 2.39 M/mm3 (4.30-5.90)
[2023-01-20 08:58] LABS: Platelet Count 17 K/mm3 (150-400); White Blood Cell Count 0.13 K/mm3 (4.00-11.30)
[2023-01-20 09:18] LABS: BASOPHILS PERCENT MAN 0 % (0-2); EOSINOPHILS PERCENT MAN 0 % (0-6); LYMPHOCYTES ABSOLUTE MAN 0.11 K/mm3 (0.84-5.20); LYMPHOCYTES PERCENT MAN 88 % (21-46); MONOCYTES PERCENT MAN 0 % (4-13); NEUTROPHILS ABSOLUTE MAN 0.01 K/mm3 (1.96-9.15); SEG NEUTROPHILS PERCENT MAN 12 % (41-73); TOTAL CELLS COUNTED 25
[2023-01-21 08:15] VITALS: BP 118/65
[2023-01-21] MEDS ORDERED: KLOR-CON 1010 ME9 PO (08:17)
[2023-01-21] MEDS ORDERED: SOAANZ20 M3 PO (08:17)
[2023-01-21 09:33] VITALS: BP 123/60
[2023-01-21 09:48] VITALS: BP 127/66
== END 2023-01-21 09:52 | disposition home or self-care (01) ==
LOC: ATC 01:57
PROVIDERS: Internal Medicine Hematology & Oncology
DX: C92.00 Acute myeloblastic leukemia, not having achieved remission (principal); N18.4 Chronic kidney disease, stage 4 (severe)
CPT/HCPCS: 36430; 36592; 85025; 86850; 86900; 86901; 86923; J7050; P9016

== ENCOUNTER 2023-01-26 02:19 | Day surgery (SDC) | payer MEDICARE, OTHER ==
[2023-01-25 07:37] VITALS: BP 150/77
[2023-01-25 08:04] LABS: Hematocrit 22.1 % (37.0-53.0); Hemoglobin 7.7 g/dL (13.5-17.5); Mean Corpuscular HGB 29.8 pg (26.0-34.0); Mean Corpuscular HGB Conc 34.8 g/dL (31.5-36.5); Mean Corpuscular Volume 86 fL (80-100); Mean Platelet Volume 9.6 fL (9.1-12.4); RDW Coefficient Variation 13.2 % (11.7-14.2); RDW Standard Deviation 41.4 fL (35.1-46.3); Red Blood Cell Count 2.58 M/mm3 (4.30-5.90)
[2023-01-25 08:14] LABS: Platelet Count 1 K/mm3 (150-400)
[2023-01-25 08:32] LABS: BASOPHILS PERCENT MAN 0 % (0-2); EOSINOPHILS PERCENT MAN 0 % (0-6); LYMPHOCYTES % ATYPICAL MANUAL 4 % (0-0); LYMPHOCYTES ABSOLUTE MAN 0.18 K/mm3 (0.84-5.20); LYMPHOCYTES PERCENT MAN 88 % (21-46); MONOCYTES PERCENT MAN 0 % (4-13); NEUTROPHILS ABSOLUTE MAN 0.01 K/mm3 (1.96-9.15); SEG NEUTROPHILS PERCENT MAN 8 % (41-73); TOTAL CELLS COUNTED 25
[~2023-01-26 02:19] MED LIST changes: +KLOR-CON 1010 ME9 PO; +SOAANZ20 M3 PO
[2023-01-26 08:18] VITALS: BP 133/63
[2023-01-26 08:37] VITALS: BP 132/60
[2023-01-26 09:25] VITALS: BP 140/72
[2023-01-26 09:43] VITALS: BP 138/69
[2023-01-26 10:42] VITALS: BP 147/66
== END 2023-01-26 11:20 | disposition home or self-care (01) ==
LOC: ATC 02:19
PROVIDERS: Internal Medicine Hematology & Oncology
DX: C92.00 Acute myeloblastic leukemia, not having achieved remission (principal); N18.4 Chronic kidney disease, stage 4 (severe)
CPT/HCPCS: 36430; 36592; 85025; 86850; 86900; 86901; 86923; J7050; P9016; P9035

== ENCOUNTER 2023-02-11 07:26 | Day surgery (SDC) | payer MEDICARE, OTHER ==
[2023-02-11 07:30] VITALS: BP 131/86
[2023-02-11 07:49] LABS: Hematocrit 22.5 % (37.0-53.0); Hemoglobin 7.6 g/dL (13.5-17.5); Mean Corpuscular HGB 28.9 pg (26.0-34.0); Mean Corpuscular HGB Conc 33.8 g/dL (31.5-36.5); Mean Corpuscular Volume 86 fL (80-100); Mean Platelet Volume 10.6 fL (9.1-12.4); RDW Coefficient Variation 13.8 % (11.7-14.2); RDW Standard Deviation 43.3 fL (35.1-46.3); Red Blood Cell Count 2.63 M/mm3 (4.30-5.90)
[2023-02-11 08:27] LABS: Platelet Count 15 K/mm3 (150-400); White Blood Cell Count 0.27 K/mm3 (4.00-11.30)
[2023-02-11 08:33] LABS: BASOPHILS PERCENT MAN 0 % (0-2); EOSINOPHILS PERCENT MAN 0 % (0-6); LYMPHOCYTES PERCENT MAN 76 % (21-46); MONOCYTES ABSOLUTE MAN 0.01 K/mm3 (0.16-1.47); MONOCYTES PERCENT MAN 4 % (4-13); NEUTROPHILS ABSOLUTE MAN 0.05 K/mm3 (1.96-9.15); SEG NEUTROPHILS PERCENT MAN 20 % (41-73); TOTAL CELLS COUNTED 25
[2023-02-11 13:24] VITALS: BP 146/79
[2023-02-11 13:40] VITALS: BP 119/66
[2023-02-11 14:26] VITALS: BP 143/76
[2023-02-11 14:52] VITALS: BP 121/59
[2023-02-11 16:06] VITALS: BP 141/67
== END 2023-02-11 16:14 | disposition home or self-care (01) ==
LOC: ATC 07:26
PROVIDERS: Internal Medicine Hematology & Oncology
DX: C92.00 Acute myeloblastic leukemia, not having achieved remission (principal); N18.4 Chronic kidney disease, stage 4 (severe)
CPT/HCPCS: 36430; 85025; 86850; 86900; 86901; 86923; J7050; P9016; P9053

== ENCOUNTER 2023-02-15 00:51 | Day surgery (SDC) | payer MEDICARE, OTHER ==
[2023-02-15 07:57] VITALS: BP 148/75
[2023-02-15 08:21] LABS: Hematocrit 23.7 % (37.0-53.0); Hemoglobin 7.8 g/dL (13.5-17.5); Mean Corpuscular HGB 28.2 pg (26.0-34.0); Mean Corpuscular HGB Conc 32.9 g/dL (31.5-36.5); Mean Corpuscular Volume 86 fL (80-100); Mean Platelet Volume 12.7 fL (9.1-12.4); RDW Coefficient Variation 14.7 % (11.7-14.2); RDW Standard Deviation 45.8 fL (35.1-46.3); Red Blood Cell Count 2.77 M/mm3 (4.30-5.90)
[2023-02-15 08:29] LABS: Platelet Count 10 K/mm3 (150-400); White Blood Cell Count 0.45 K/mm3 (4.00-11.30)
[2023-02-15 08:54] LABS: BASOPHILS PERCENT MAN 0 % (0-2); EOSINOPHILS PERCENT MAN 0 % (0-6); LYMPHOCYTES PERCENT MAN 68 % (21-46); MONOCYTES ABSOLUTE MAN 0.03 K/mm3 (0.16-1.47); MONOCYTES PERCENT MAN 8 % (4-13); SEG NEUTROPHILS PERCENT MAN 24 % (41-73); TOTAL CELLS COUNTED 25
[2023-02-15 15:40] VITALS: BP 117/65
[2023-02-15 15:56] VITALS: BP 115/55
--- NOTE | 2023-02-16 07:11 | NUR ---
END TIME OF BLOOD WAS 02/15/23 AT 1705
== END 2023-02-15 23:11 | disposition home or self-care (01) ==
LOC: ATC 00:51
PROVIDERS: Internal Medicine Hematology & Oncology
DX: C92.00 Acute myeloblastic leukemia, not having achieved remission (principal); N18.4 Chronic kidney disease, stage 4 (severe)
CPT/HCPCS: 36430; 85025; 86900; 86901; J7050; P9035

== ENCOUNTER 2023-02-18 01:38 | Day surgery (SDC) | payer MEDICARE, OTHER ==
[2023-02-18] VITALS (8 sets, daily range): BP systolic 116–148; BP diastolic 58–78
[2023-02-18 08:19] LABS: Hematocrit 22.2 % (37.0-53.0); Hemoglobin 7.3 g/dL (13.5-17.5); Mean Corpuscular HGB 28.4 pg (26.0-34.0); Mean Corpuscular HGB Conc 32.9 g/dL (31.5-36.5); Mean Corpuscular Volume 86 fL (80-100); Mean Platelet Volume 10.8 fL (9.1-12.4); RDW Coefficient Variation 14.7 % (11.7-14.2); RDW Standard Deviation 46.2 fL (35.1-46.3); Red Blood Cell Count 2.57 M/mm3 (4.30-5.90)
[2023-02-18 08:32] LABS: Platelet Count 10 K/mm3 (150-400); White Blood Cell Count 0.56 K/mm3 (4.00-11.30)
[2023-02-18 08:48] LABS: BAND PERCENT MAN 4 % (0-8); BASOPHILS PERCENT MAN 0 % (0-2); EOSINOPHILS PERCENT MAN 0 % (0-6); LYMPHOCYTES ABSOLUTE MAN 0.24 K/mm3 (0.84-5.20); LYMPHOCYTES PERCENT MAN 44 % (21-46); MONOCYTES ABSOLUTE MAN 0.08 K/mm3 (0.16-1.47); MONOCYTES PERCENT MAN 16 % (4-13); SEG NEUTROPHILS PERCENT MAN 32 % (41-73); TOTAL CELLS COUNTED 25
[2023-02-18 08:49] LABS: OTHER CELL PERCENT MAN 4 % (0-0)
== END 2023-02-18 16:23 | disposition home or self-care (01) ==
LOC: ATC 01:38
PROVIDERS: Internal Medicine Hematology & Oncology
DX: C92.00 Acute myeloblastic leukemia, not having achieved remission (principal)
CPT/HCPCS: 36430; 85025; 86850; 86900; 86901; 86923; J7050; P9016; P9035

== ENCOUNTER 2023-02-22 02:09 | Day surgery (SDC) | payer MEDICARE, OTHER ==
[2023-02-22] VITALS (7 sets, daily range): BP systolic 130–164; BP diastolic 55–87
[2023-02-22 09:05] LABS: Hematocrit 22.5 % (37.0-53.0); Hemoglobin 7.4 g/dL (13.5-17.5); Mean Corpuscular HGB 28.5 pg (26.0-34.0); Mean Corpuscular HGB Conc 32.9 g/dL (31.5-36.5); Mean Corpuscular Volume 87 fL (80-100); Mean Platelet Volume 10.4 fL (9.1-12.4); RDW Coefficient Variation 14.8 % (11.7-14.2); RDW Standard Deviation 46.4 fL (35.1-46.3)
[2023-02-22 09:12] LABS: BASOPHILS PERCENT AUTO 0 % (0-2); EOSINOPHILS PERCENT AUTO 0 % (0-6); IMMATURE GRAN PERCENT AUTO 0 % (0-1); LYMPHOCYTES ABSOLUTE AUTO 0.22 K/mm3 (0.84-5.20); LYMPHOCYTES PERCENT AUTO 36 % (21-46); MONOCYTES ABSOLUTE AUTO 0.23 K/mm3 (0.16-1.47); MONOCYTES PERCENT AUTO 37 % (4-13); NEUTROPHILS ABSOLUTE AUTO 0.17 K/mm3 (1.96-9.15); NEUTROPHILS PERCENT AUTO 27 % (41-73)
[2023-02-22 09:13] LABS: White Blood Cell Count 0.62 K/mm3 (4.00-11.30)
[2023-02-22 09:14] LABS: Platelet Count 13 K/mm3 (150-400)
== END 2023-02-22 16:15 | disposition home or self-care (01) ==
LOC: LAB 02:09 → ATC 02:09
PROVIDERS: Internal Medicine Hematology & Oncology
DX: C92.00 Acute myeloblastic leukemia, not having achieved remission (principal)
CPT/HCPCS: 36430; 85025; 86850; 86900; 86901; 86923; J7050; P9016; P9035

== ENCOUNTER 2023-02-25 03:21 | Day surgery (SDC) | payer MEDICARE, OTHER ==
[2023-02-25 08:14] VITALS: BP 139/84
[2023-02-25 09:39] LABS: Hematocrit 24.6 % (37.0-53.0); Mean Corpuscular HGB 28.4 pg (26.0-34.0); Mean Corpuscular HGB Conc 32.5 g/dL (31.5-36.5); Mean Corpuscular Volume 87 fL (80-100); RDW Coefficient Variation 15.1 % (11.7-14.2); RDW Standard Deviation 48.1 fL (35.1-46.3); Red Blood Cell Count 2.82 M/mm3 (4.30-5.90)
[2023-02-25 09:45] LABS: White Blood Cell Count 0.58 K/mm3 (4.00-11.30)
[2023-02-25 09:46] LABS: Platelet Count 12 K/mm3 (150-400)
[2023-02-25 10:04] LABS: BASOPHILS PERCENT MAN 0 % (0-2); EOSINOPHILS PERCENT MAN 0 % (0-6); LYMPHOCYTES ABSOLUTE MAN 0.34 K/mm3 (0.84-5.20); LYMPHOCYTES PERCENT MAN 60 % (21-46); MONOCYTES ABSOLUTE MAN 0.09 K/mm3 (0.16-1.47); MONOCYTES PERCENT MAN 16 % (4-13); NEUTROPHILS ABSOLUTE MAN 0.13 K/mm3 (1.96-9.15); SEG NEUTROPHILS PERCENT MAN 24 % (41-73); TOTAL CELLS COUNTED 25
[2023-02-25 13:18] VITALS: BP 122/71
[2023-02-25 13:35] VITALS: BP 138/69
[2023-02-25 14:20] VITALS: BP 132/70
== END 2023-02-25 14:22 | disposition home or self-care (01) ==
LOC: ATC 03:21 → LAB 03:21 → ATC 08:00
PROVIDERS: Internal Medicine Hematology & Oncology
DX: C92.00 Acute myeloblastic leukemia, not having achieved remission (principal); D63.0 Anemia in neoplastic disease
CPT/HCPCS: 36430; 85025; J7050; P9053

== ENCOUNTER 2023-03-02 07:34 | Day surgery (SDC) | payer MEDICARE, OTHER ==
[2023-03-01 08:56] VITALS: BP 125/79
[2023-03-01 09:09] LABS: Hematocrit 22.2 % (37.0-53.0); Hemoglobin 7.3 g/dL (13.5-17.5); Mean Corpuscular HGB 28.5 pg (26.0-34.0); Mean Corpuscular HGB Conc 32.9 g/dL (31.5-36.5); Mean Corpuscular Volume 87 fL (80-100); Mean Platelet Volume 8.7 fL (9.1-12.4); RDW Coefficient Variation 15.3 % (11.7-14.2); RDW Standard Deviation 48.1 fL (35.1-46.3); Red Blood Cell Count 2.56 M/mm3 (4.30-5.90)
[2023-03-01 09:13] LABS: White Blood Cell Count 0.49 K/mm3 (4.00-11.30)
[2023-03-01 09:14] LABS: Platelet Count 8 K/mm3 (150-400)
[2023-03-01 09:28] LABS: BASOPHILS PERCENT MAN 0 % (0-2); EOSINOPHILS PERCENT MAN 0 % (0-6); LYMPHOCYTES ABSOLUTE MAN 0.17 K/mm3 (0.84-5.20); LYMPHOCYTES PERCENT MAN 36 % (21-46); MONOCYTES ABSOLUTE MAN 0.07 K/mm3 (0.16-1.47); MONOCYTES PERCENT MAN 16 % (4-13); NEUTROPHILS ABSOLUTE MAN 0.23 K/mm3 (1.96-9.15); SEG NEUTROPHILS PERCENT MAN 48 % (41-73); TOTAL CELLS COUNTED 25
[2023-03-02 07:57] VITALS: BP 150/89
[2023-03-02 08:15] VITALS: BP 131/65
[2023-03-02 09:10] VITALS: BP 146/69
[2023-03-02 09:43] VITALS: BP 140/79
[2023-03-02 10:43] VITALS: BP 154/70
[2023-03-02 11:10] VITALS: BP 151/76
== END 2023-03-02 11:15 | disposition home or self-care (01) ==
LOC: ATC 07:34
PROVIDERS: Internal Medicine Hematology & Oncology
DX: C92.00 Acute myeloblastic leukemia, not having achieved remission (principal); K21.9 Gastro-esophageal reflux disease without esophagitis; E78.5 Hyperlipidemia, unspecified; E03.9 Hypothyroidism, unspecified; Z87.891 Personal history of nicotine dependence
CPT/HCPCS: 36430; 85025; 86850; 86900; 86901; 86923; J7050; P9016; P9035

== ENCOUNTER 2023-03-04 03:09 | Day surgery (SDC) | payer MEDICARE, OTHER ==
[2023-03-04 08:52] VITALS: BP 161/97
[2023-03-04 09:07] LABS: Hematocrit 25.6 % (37.0-53.0); Hemoglobin 8.6 g/dL (13.5-17.5); Mean Corpuscular HGB 29.5 pg (26.0-34.0); Mean Corpuscular HGB Conc 33.6 g/dL (31.5-36.5); Mean Corpuscular Volume 88 fL (80-100); Mean Platelet Volume 9.9 fL (9.1-12.4); RDW Standard Deviation 49.6 fL (35.1-46.3); Red Blood Cell Count 2.92 M/mm3 (4.30-5.90)
[2023-03-04 09:10] LABS: Platelet Count 22 K/mm3 (150-400); White Blood Cell Count 0.62 K/mm3 (4.00-11.30)
[2023-03-04 09:33] LABS: BASOPHILS PERCENT MAN 0 % (0-2); EOSINOPHILS PERCENT MAN 0 % (0-6); LYMPHOCYTES ABSOLUTE MAN 0.14 K/mm3 (0.84-5.20); LYMPHOCYTES PERCENT MAN 24 % (21-46); MONOCYTES ABSOLUTE MAN 0.14 K/mm3 (0.16-1.47); MONOCYTES PERCENT MAN 24 % (4-13); NEUTROPHILS ABSOLUTE MAN 0.32 K/mm3 (1.96-9.15); SEG NEUTROPHILS PERCENT MAN 52 % (41-73); TOTAL CELLS COUNTED 25
== END 2023-03-04 08:46 | disposition home or self-care (01) ==
LOC: ATC 03:09
PROVIDERS: Internal Medicine Hematology & Oncology
DX: C92.00 Acute myeloblastic leukemia, not having achieved remission (principal); K21.9 Gastro-esophageal reflux disease without esophagitis; E78.5 Hyperlipidemia, unspecified; E03.9 Hypothyroidism, unspecified; Z87.891 Personal history of nicotine dependence; Z79.890 Hormone replacement therapy; Z79.899 Other long term (current) drug therapy
CPT/HCPCS: 36592; 85025

== ENCOUNTER 2023-03-09 01:25 | Day surgery (SDC) | payer MEDICARE, OTHER ==
[2023-03-08 08:57] VITALS: BP 137/69
[2023-03-08 08:57] LABS: Hematocrit 24.6 % (37.0-53.0); Hemoglobin 8.1 g/dL (13.5-17.5); Mean Corpuscular HGB 29.3 pg (26.0-34.0); Mean Corpuscular HGB Conc 32.9 g/dL (31.5-36.5); Mean Corpuscular Volume 89 fL (80-100); Mean Platelet Volume 11.4 fL (9.1-12.4); Red Blood Cell Count 2.76 M/mm3 (4.30-5.90)
[2023-03-08 09:00] LABS: Platelet Count 12 K/mm3 (150-400); White Blood Cell Count 0.62 K/mm3 (4.00-11.30)
[2023-03-08 09:17] LABS: BASOPHILS PERCENT MAN 0 % (0-2); EOSINOPHILS PERCENT MAN 0 % (0-6); LYMPHOCYTES ABSOLUTE MAN 0.22 K/mm3 (0.84-5.20); LYMPHOCYTES PERCENT MAN 36 % (21-46); MONOCYTES ABSOLUTE MAN 0.02 K/mm3 (0.16-1.47); MONOCYTES PERCENT MAN 4 % (4-13); NEUTROPHILS ABSOLUTE MAN 0.37 K/mm3 (1.96-9.15); SEG NEUTROPHILS PERCENT MAN 60 % (41-73); TOTAL CELLS COUNTED 25
[2023-03-09 07:56] VITALS: BP 140/80
[2023-03-09 08:16] VITALS: BP 126/62
[2023-03-09 09:05] VITALS: BP 130/82
== END 2023-03-09 09:10 | disposition home or self-care (01) ==
LOC: ATC 01:25
PROVIDERS: Internal Medicine Hematology & Oncology
DX: C92.00 Acute myeloblastic leukemia, not having achieved remission (principal)
CPT/HCPCS: 36430; 36592; 85025; 86900; 86901; J7050; P9035

== ENCOUNTER 2023-03-10 10:52 | Emergency (ER) | payer MEDICARE, OTHER ==
[~2023-03-10] VITALS: Ht 175.3 cm; Wt 77.1 kg
[2023-03-10 11:02] VITALS: BP 160/88
[2023-03-10 12:12] LABS: Influenza A, PCR NEGATIVE (NEGATIVE); Influenza B, PCR NEGATIVE (NEGATIVE); Resp Syncytial Virus, PCR NEGATIVE (NEGATIVE); SARS-Cov-2 (COVID-19) PCR, MMC NEGATIVE (NEGATIVE)
== END 2023-03-10 11:08 | disposition home or self-care (01) ==
LOC: ER 10:52
PROVIDERS: Physician Assistant
DX: R05.9 Cough, unspecified (principal); Z20.822 Contact with and (suspected) exposure to COVID-19; Z79.899 Other long term (current) drug therapy; E03.9 Hypothyroidism, unspecified
CPT/HCPCS: 0241U; 99283

== ENCOUNTER 2023-03-12 04:30 | Day surgery (SDC) | payer MEDICARE, OTHER ==
[2023-03-11 08:08] VITALS: BP 141/90
[2023-03-11 08:48] LABS: Hematocrit 22.5 % (37.0-53.0); Hemoglobin 7.5 g/dL (13.5-17.5); Mean Corpuscular HGB 30.1 pg (26.0-34.0); Mean Corpuscular HGB Conc 33.3 g/dL (31.5-36.5); Mean Corpuscular Volume 90 fL (80-100); Mean Platelet Volume 11.4 fL (9.1-12.4); RDW Coefficient Variation 18.3 % (11.7-14.2); RDW Standard Deviation 52.5 fL (35.1-46.3); Red Blood Cell Count 2.49 M/mm3 (4.30-5.90)
[2023-03-11 08:51] LABS: BASOPHILS PERCENT AUTO 0 % (0-2); EOSINOPHILS PERCENT AUTO 0 % (0-6); IMMATURE GRAN ABSOLUTE AUTO 0.05 K/mm3 (0.00-0.10); IMMATURE GRAN PERCENT AUTO 6 % (0-1); LYMPHOCYTES ABSOLUTE AUTO 0.23 K/mm3 (0.84-5.20); LYMPHOCYTES PERCENT AUTO 27 % (21-46); MONOCYTES ABSOLUTE AUTO 0.12 K/mm3 (0.16-1.47); MONOCYTES PERCENT AUTO 14 % (4-13); NEUTROPHILS ABSOLUTE AUTO 0.44 K/mm3 (1.96-9.15); NEUTROPHILS PERCENT AUTO 52 % (41-73)
[2023-03-11 08:53] LABS: Platelet Count 26 K/mm3 (150-400); White Blood Cell Count 0.84 K/mm3 (4.00-11.30)
[2023-03-12 07:46] VITALS: BP 132/65
[2023-03-12 08:03] VITALS: BP 117/57
[2023-03-12 09:03] VITALS: BP 130/57
[2023-03-12 10:53] VITALS: BP 120/65
== END 2023-03-12 09:20 | disposition home or self-care (01) ==
LOC: ATC 04:30
PROVIDERS: Internal Medicine Hematology & Oncology
DX: C92.00 Acute myeloblastic leukemia, not having achieved remission (principal)
CPT/HCPCS: 36430; 36592; 85025; 86850; 86900; 86901; 86923; J7050; P9016

== ENCOUNTER 2023-03-15 01:41 | Day surgery (SDC) | payer MEDICARE, OTHER ==
[2023-03-15 07:30] VITALS: BP 145/82
[2023-03-15 07:55] LABS: Hematocrit 25.8 % (37.0-53.0); Hemoglobin 8.4 g/dL (13.5-17.5); Mean Corpuscular HGB 29.8 pg (26.0-34.0); Mean Corpuscular HGB Conc 32.6 g/dL (31.5-36.5); Mean Corpuscular Volume 92 fL (80-100); RDW Coefficient Variation 18.7 % (11.7-14.2); RDW Standard Deviation 52.5 fL (35.1-46.3); Red Blood Cell Count 2.82 M/mm3 (4.30-5.90)
[2023-03-15 08:08] LABS: Platelet Count 17 K/mm3 (150-400)
[2023-03-15 08:15] LABS: BASOPHILS PERCENT MAN 0 % (0-2); EOSINOPHILS PERCENT MAN 0 % (0-6); LYMPHOCYTES ABSOLUTE MAN 0.32 K/mm3 (0.84-5.20); LYMPHOCYTES PERCENT MAN 36 % (21-46); MONOCYTES PERCENT MAN 12 % (4-13); NEUTROPHILS ABSOLUTE MAN 0.46 K/mm3 (1.96-9.15); SEG NEUTROPHILS PERCENT MAN 52 % (41-73); TOTAL CELLS COUNTED 25
== END 2023-03-15 07:45 | disposition home or self-care (01) ==
LOC: ATC 01:41
PROVIDERS: Internal Medicine Hematology & Oncology
DX: C92.00 Acute myeloblastic leukemia, not having achieved remission (principal); E78.5 Hyperlipidemia, unspecified; E03.9 Hypothyroidism, unspecified; K21.9 Gastro-esophageal reflux disease without esophagitis; Z87.891 Personal history of nicotine dependence
CPT/HCPCS: 36592; 85025

== ENCOUNTER 2023-03-18 05:02 | Day surgery (SDC) | payer MEDICARE, OTHER ==
[2023-03-18 08:05] VITALS: BP 156/73
[2023-03-18 08:42] LABS: Hematocrit 26.8 % (37.0-53.0); Hemoglobin 8.7 g/dL (13.5-17.5); Mean Corpuscular HGB 30.4 pg (26.0-34.0); Mean Corpuscular HGB Conc 32.5 g/dL (31.5-36.5); Mean Corpuscular Volume 94 fL (80-100); NRBC ABSOLUTE 0.04 K/mm3 (0.00-0.02); NRBC Auto 3.3 /100 WBC (0.0-0.2); RDW Coefficient Variation 20.4 % (11.7-14.2); RDW Standard Deviation 55.2 fL (35.1-46.3); Red Blood Cell Count 2.86 M/mm3 (4.30-5.90); White Blood Cell Count 1.22 K/mm3 (4.00-11.30)
[2023-03-18 08:46] LABS: Platelet Count 18 K/mm3 (150-400)
[2023-03-18 09:08] LABS: BASOPHILS PERCENT MAN 0 % (0-2); EOSINOPHILS ABSOLUTE MAN 0.02 K/mm3 (0.00-0.68); EOSINOPHILS PERCENT MAN 2 % (0-6); LYMPHOCYTES ABSOLUTE MAN 0.12 K/mm3 (0.84-5.20); LYMPHOCYTES PERCENT MAN 10 % (21-46); MONOCYTES ABSOLUTE MAN 0.04 K/mm3 (0.16-1.47); MONOCYTES PERCENT MAN 4 % (4-13); NEUTROPHILS ABSOLUTE MAN 1.02 K/mm3 (1.96-9.15); SEG NEUTROPHILS PERCENT MAN 84 % (41-73); TOTAL CELLS COUNTED 50
== END 2023-03-18 08:13 | disposition home or self-care (01) ==
LOC: ATC 05:02
PROVIDERS: Internal Medicine Hematology & Oncology
DX: C92.00 Acute myeloblastic leukemia, not having achieved remission (principal); K21.9 Gastro-esophageal reflux disease without esophagitis; E78.5 Hyperlipidemia, unspecified; E03.9 Hypothyroidism, unspecified; Z87.891 Personal history of nicotine dependence; Z79.890 Hormone replacement therapy; Z79.899 Other long term (current) drug therapy
CPT/HCPCS: 36592; 85025

== ENCOUNTER 2023-03-22 00:34 | Day surgery (SDC) | payer MEDICARE, OTHER ==
[2023-03-22 07:30] VITALS: BP 163/72
[2023-03-22 08:10] LABS: Hematocrit 24.7 % (37.0-53.0); Mean Corpuscular HGB 30.8 pg (26.0-34.0); Mean Corpuscular HGB Conc 32.4 g/dL (31.5-36.5); Mean Corpuscular Volume 95 fL (80-100); Mean Platelet Volume 10.7 fL (9.1-12.4); RDW Coefficient Variation 22.5 % (11.7-14.2); RDW Standard Deviation 60.1 fL (35.1-46.3)
[2023-03-22 08:20] LABS: Platelet Count 19 K/mm3 (150-400)
[2023-03-22 08:33] LABS: BASOPHILS PERCENT MAN 0 % (0-2); EOSINOPHILS PERCENT MAN 0 % (0-6); LYMPHOCYTES ABSOLUTE MAN 0.33 K/mm3 (0.84-5.20); LYMPHOCYTES PERCENT MAN 30 % (21-46); MONOCYTES ABSOLUTE MAN 0.04 K/mm3 (0.16-1.47); MONOCYTES PERCENT MAN 4 % (4-13); NEUTROPHILS ABSOLUTE MAN 0.72 K/mm3 (1.96-9.15); SEG NEUTROPHILS PERCENT MAN 66 % (41-73); TOTAL CELLS COUNTED 50
== END 2023-03-22 07:45 | disposition home or self-care (01) ==
LOC: ATC 00:34
PROVIDERS: Internal Medicine Hematology & Oncology
DX: C92.00 Acute myeloblastic leukemia, not having achieved remission (principal); K21.9 Gastro-esophageal reflux disease without esophagitis; E78.5 Hyperlipidemia, unspecified; E03.9 Hypothyroidism, unspecified; M19.042 Primary osteoarthritis, left hand; M19.041 Primary osteoarthritis, right hand; Z87.891 Personal history of nicotine dependence
CPT/HCPCS: 36592; 85025

== ENCOUNTER 2023-03-25 02:12 | Day surgery (SDC) | payer MEDICARE, OTHER ==
[2023-03-25 08:40] VITALS: BP 136/76
[2023-03-25 09:11] LABS: Hematocrit 25.1 % (37.0-53.0); Hemoglobin 8.2 g/dL (13.5-17.5); Mean Corpuscular HGB 31.4 pg (26.0-34.0); Mean Corpuscular HGB Conc 32.7 g/dL (31.5-36.5); Mean Corpuscular Volume 96 fL (80-100); NRBC ABSOLUTE 0.05 K/mm3 (0.00-0.02); NRBC Auto 3.9 /100 WBC (0.0-0.2); Red Blood Cell Count 2.61 M/mm3 (4.30-5.90); White Blood Cell Count 1.29 K/mm3 (4.00-11.30)
[2023-03-25 09:19] LABS: Platelet Count 22 K/mm3 (150-400)
[2023-03-25 09:36] LABS: BASOPHILS PERCENT MAN 0 % (0-2); EOSINOPHILS ABSOLUTE MAN 0.05 K/mm3 (0.00-0.68); EOSINOPHILS PERCENT MAN 4 % (0-6); LYMPHOCYTES ABSOLUTE MAN 0.25 K/mm3 (0.84-5.20); LYMPHOCYTES PERCENT MAN 20 % (21-46); MONOCYTES ABSOLUTE MAN 0.02 K/mm3 (0.16-1.47); MONOCYTES PERCENT MAN 2 % (4-13); NEUTROPHILS ABSOLUTE MAN 0.95 K/mm3 (1.96-9.15); SEG NEUTROPHILS PERCENT MAN 74 % (41-73); TOTAL CELLS COUNTED 50
== END 2023-03-25 08:55 | disposition home or self-care (01) ==
LOC: ATC 02:12
PROVIDERS: Internal Medicine Hematology & Oncology
DX: C92.00 Acute myeloblastic leukemia, not having achieved remission (principal); K21.9 Gastro-esophageal reflux disease without esophagitis; E78.5 Hyperlipidemia, unspecified; E03.9 Hypothyroidism, unspecified; Z86.010 Personal history of colon polyps; Z87.891 Personal history of nicotine dependence; Z79.899 Other long term (current) drug therapy
CPT/HCPCS: 36592; 85025

== ENCOUNTER 2023-03-29 02:41 | Day surgery (SDC) | payer MEDICARE, OTHER ==
[2023-03-29 08:45] VITALS: BP 160/86
[2023-03-29 09:08] LABS: Hemoglobin 7.7 g/dL (13.5-17.5); Mean Corpuscular HGB 31.8 pg (26.0-34.0); Mean Corpuscular HGB Conc 32.1 g/dL (31.5-36.5); Mean Corpuscular Volume 99 fL (80-100); Mean Platelet Volume 12.3 fL (9.1-12.4); NRBC ABSOLUTE 0.02 K/mm3 (0.00-0.02); NRBC Auto 1.3 /100 WBC (0.0-0.2); RDW Coefficient Variation 25.7 % (11.7-14.2); RDW Standard Deviation 86.5 fL (35.1-46.3); Red Blood Cell Count 2.42 M/mm3 (4.30-5.90); White Blood Cell Count 1.51 K/mm3 (4.00-11.30)
[2023-03-29 09:11] LABS: Platelet Count 25 K/mm3 (150-400)
[2023-03-29 09:31] LABS: BAND PERCENT MAN 6 % (0-8); BASOPHILS PERCENT MAN 0 % (0-2); EOSINOPHILS ABSOLUTE MAN 0.03 K/mm3 (0.00-0.68); EOSINOPHILS PERCENT MAN 2 % (0-6); LYMPHOCYTES ABSOLUTE MAN 0.15 K/mm3 (0.84-5.20); LYMPHOCYTES PERCENT MAN 10 % (21-46); MONOCYTES ABSOLUTE MAN 0.09 K/mm3 (0.16-1.47); MONOCYTES PERCENT MAN 6 % (4-13); NEUTROPHILS ABSOLUTE MAN 1.23 K/mm3 (1.96-9.15); SEG NEUTROPHILS PERCENT MAN 76 % (41-73); TOTAL CELLS COUNTED 50
== END 2023-03-29 08:55 | disposition home or self-care (01) ==
LOC: ATC 02:41
PROVIDERS: Internal Medicine Hematology & Oncology
DX: C92.00 Acute myeloblastic leukemia, not having achieved remission (principal); E78.5 Hyperlipidemia, unspecified; E03.9 Hypothyroidism, unspecified; M19.042 Primary osteoarthritis, left hand; M19.041 Primary osteoarthritis, right hand; N52.9 Male erectile dysfunction, unspecified
CPT/HCPCS: 36592; 85025

== ENCOUNTER 2023-03-31 02:18 | Day surgery (SDC) | payer MEDICARE, OTHER ==
[2023-03-31 09:00] VITALS: BP 140/95
[2023-03-31 09:13] LABS: Hematocrit 24.1 % (37.0-53.0); Hemoglobin 7.7 g/dL (13.5-17.5); Mean Corpuscular HGB 31.7 pg (26.0-34.0); Mean Corpuscular Volume 99 fL (80-100); Mean Platelet Volume 11.8 fL (9.1-12.4); NRBC ABSOLUTE 0.03 K/mm3 (0.00-0.02); NRBC Auto 1.6 /100 WBC (0.0-0.2); RDW Coefficient Variation 26.3 % (11.7-14.2); RDW Standard Deviation 89.7 fL (35.1-46.3); Red Blood Cell Count 2.43 M/mm3 (4.30-5.90); White Blood Cell Count 1.84 K/mm3 (4.00-11.30)
[2023-03-31 09:18] LABS: Platelet Count 30 K/mm3 (150-400)
[2023-03-31 09:39] LABS: BASOPHILS PERCENT MAN 0 % (0-2); EOSINOPHILS ABSOLUTE MAN 0.03 K/mm3 (0.00-0.68); EOSINOPHILS PERCENT MAN 2 % (0-6); LYMPHOCYTES PERCENT MAN 22 % (21-46); MONOCYTES ABSOLUTE MAN 0.11 K/mm3 (0.16-1.47); MONOCYTES PERCENT MAN 6 % (4-13); NEUTROPHILS ABSOLUTE MAN 1.28 K/mm3 (1.96-9.15); SEG NEUTROPHILS PERCENT MAN 70 % (41-73); TOTAL CELLS COUNTED 50
[2023-03-31 14:00] VITALS: BP 148/67
[2023-03-31 14:17] VITALS: BP 133/68
[2023-03-31 15:16] VITALS: BP 171/77
[2023-03-31 15:38] VITALS: BP 158/82
== END 2023-03-31 15:42 | disposition home or self-care (01) ==
LOC: LAB 02:18 → ATC 02:18
PROVIDERS: Internal Medicine Hematology & Oncology
DX: C92.00 Acute myeloblastic leukemia, not having achieved remission (principal); K21.9 Gastro-esophageal reflux disease without esophagitis; E03.9 Hypothyroidism, unspecified; E78.5 Hyperlipidemia, unspecified; Z86.010 Personal history of colon polyps; Z87.891 Personal history of nicotine dependence; Z79.899 Other long term (current) drug therapy
CPT/HCPCS: 36430; 85025; 86850; 86900; 86901; 86923; J7050; P9016

== ENCOUNTER 2023-04-05 02:28 | Day surgery (SDC) | payer MEDICARE, OTHER ==
[2023-04-05 08:00] VITALS: BP 172/95
[2023-04-05 08:49] LABS: BASOPHILS ABSOLUTE AUTO 0.01 K/mm3 (0.00-0.23); BASOPHILS PERCENT AUTO 1 % (0-2); EOSINOPHILS PERCENT AUTO 0 % (0-6); Hematocrit 27.5 % (37.0-53.0); Hemoglobin 8.7 g/dL (13.5-17.5); IMMATURE GRAN PERCENT AUTO 5 % (0-1); LYMPHOCYTES ABSOLUTE AUTO 0.42 K/mm3 (0.84-5.20); LYMPHOCYTES PERCENT AUTO 19 % (21-46); MONOCYTES ABSOLUTE AUTO 0.21 K/mm3 (0.16-1.47); MONOCYTES PERCENT AUTO 10 % (4-13); Mean Corpuscular HGB 31.8 pg (26.0-34.0); Mean Corpuscular HGB Conc 31.6 g/dL (31.5-36.5); Mean Corpuscular Volume 100 fL (80-100); Mean Platelet Volume 10.1 fL (9.1-12.4); NEUTROPHILS ABSOLUTE AUTO 1.48 K/mm3 (1.96-9.15); NEUTROPHILS PERCENT AUTO 67 % (41-73); NRBC ABSOLUTE 0.02 K/mm3 (0.00-0.02); NRBC Auto 0.9 /100 WBC (0.0-0.2); RDW Coefficient Variation 25.8 % (11.7-14.2); RDW Standard Deviation 90.3 fL (35.1-46.3); Red Blood Cell Count 2.74 M/mm3 (4.30-5.90); White Blood Cell Count 2.22 K/mm3 (4.00-11.30)
[2023-04-05 09:20] LABS: Platelet Count 36 K/mm3 (150-400)
== END 2023-04-05 08:05 | disposition home or self-care (01) ==
LOC: ATC 02:28
PROVIDERS: Internal Medicine Hematology & Oncology
DX: C92.00 Acute myeloblastic leukemia, not having achieved remission (principal); K21.9 Gastro-esophageal reflux disease without esophagitis; E78.5 Hyperlipidemia, unspecified; E03.9 Hypothyroidism, unspecified; M19.042 Primary osteoarthritis, left hand; M19.041 Primary osteoarthritis, right hand
CPT/HCPCS: 36592; 85025

== ENCOUNTER 2023-04-08 02:46 | Day surgery (SDC) | payer MEDICARE, OTHER ==
[2023-04-08 08:33] VITALS: BP 153/95
[2023-04-08 09:09] LABS: BASOPHILS ABSOLUTE AUTO 0.01 K/mm3 (0.00-0.23); BASOPHILS PERCENT AUTO 1 % (0-2); EOSINOPHILS ABSOLUTE AUTO 0.01 K/mm3 (0.00-0.68); EOSINOPHILS PERCENT AUTO 1 % (0-6); Hematocrit 25.6 % (37.0-53.0); Hemoglobin 8.2 g/dL (13.5-17.5); Mean Corpuscular HGB 31.9 pg (26.0-34.0); Mean Corpuscular Volume 100 fL (80-100); Mean Platelet Volume 11.8 fL (9.1-12.4); NRBC ABSOLUTE 0.02 K/mm3 (0.00-0.02); NRBC Auto 1.1 /100 WBC (0.0-0.2); RDW Coefficient Variation 26.1 % (11.7-14.2); RDW Standard Deviation 88.9 fL (35.1-46.3); Red Blood Cell Count 2.57 M/mm3 (4.30-5.90); White Blood Cell Count 1.82 K/mm3 (4.00-11.30)
[2023-04-08 09:57] LABS: IMMATURE GRAN ABSOLUTE AUTO 0.06 K/mm3 (0.00-0.10); IMMATURE GRAN PERCENT AUTO 3 % (0-1); LYMPHOCYTES ABSOLUTE AUTO 0.33 K/mm3 (0.84-5.20); LYMPHOCYTES PERCENT AUTO 18 % (21-46); MONOCYTES ABSOLUTE AUTO 0.26 K/mm3 (0.16-1.47); MONOCYTES PERCENT AUTO 14 % (4-13); NEUTROPHILS ABSOLUTE AUTO 1.15 K/mm3 (1.96-9.15); NEUTROPHILS PERCENT AUTO 63 % (41-73); Platelet Count 42 K/mm3 (150-400)
== END 2023-04-08 08:51 | disposition home or self-care (01) ==
LOC: ATC 02:46
PROVIDERS: Internal Medicine Hematology & Oncology
DX: C92.00 Acute myeloblastic leukemia, not having achieved remission (principal); K21.9 Gastro-esophageal reflux disease without esophagitis; E78.5 Hyperlipidemia, unspecified; E03.9 Hypothyroidism, unspecified; Z87.891 Personal history of nicotine dependence; Z79.899 Other long term (current) drug therapy
CPT/HCPCS: 36592; 85025

== ENCOUNTER 2023-04-14 01:58 | Day surgery (SDC) | payer MEDICARE, OTHER ==
[2023-04-13 09:20] VITALS: BP 135/71
[2023-04-13 10:04] LABS: Hematocrit 23.9 % (37.0-53.0); Hemoglobin 7.6 g/dL (13.5-17.5); Mean Corpuscular HGB 32.8 pg (26.0-34.0); Mean Corpuscular HGB Conc 31.8 g/dL (31.5-36.5); Mean Corpuscular Volume 103 fL (80-100); Mean Platelet Volume 10.9 fL (9.1-12.4); NRBC ABSOLUTE 0.02 K/mm3 (0.00-0.02); NRBC Auto 1.3 /100 WBC (0.0-0.2); Platelet Count 57 K/mm3 (150-400); RDW Coefficient Variation 25.8 % (11.7-14.2); RDW Standard Deviation 91.8 fL (35.1-46.3); Red Blood Cell Count 2.32 M/mm3 (4.30-5.90)
[2023-04-13 10:31] LABS: BAND PERCENT MAN 4 % (0-8); BASOPHILS ABSOLUTE MAN 0.03 K/mm3 (0.00-0.23); BASOPHILS PERCENT MAN 2 % (0-2); BLASTS PERCENT MAN 6 % (0-0); EOSINOPHILS ABSOLUTE MAN 0.03 K/mm3 (0.00-0.68); EOSINOPHILS PERCENT MAN 2 % (0-6); LYMPHOCYTES % ATYPICAL MANUAL 2 % (0-0); LYMPHOCYTES ABSOLUTE MAN 0.19 K/mm3 (0.84-5.20); LYMPHOCYTES PERCENT MAN 10 % (21-46); MONOCYTES ABSOLUTE MAN 0.09 K/mm3 (0.16-1.47); MONOCYTES PERCENT MAN 6 % (4-13); NEUTROPHILS ABSOLUTE MAN 1.15 K/mm3 (1.96-9.15); SEG NEUTROPHILS PERCENT MAN 68 % (41-73); TOTAL CELLS COUNTED 50
[2023-04-14 13:43] VITALS: BP 147/61
[2023-04-14 14:02] VITALS: BP 134/64
[2023-04-14 15:05] VITALS: BP 110/88
[2023-04-14 15:30] VITALS: BP 148/77
== END 2023-04-14 15:30 | disposition home or self-care (01) ==
LOC: ATC 01:58
PROVIDERS: Internal Medicine Hematology & Oncology
DX: C92.00 Acute myeloblastic leukemia, not having achieved remission (principal); D70.8 Other neutropenia; K21.9 Gastro-esophageal reflux disease without esophagitis; E03.9 Hypothyroidism, unspecified; E78.5 Hyperlipidemia, unspecified; Z87.891 Personal history of nicotine dependence
CPT/HCPCS: 36430; 36592; 85025; 86850; 86900; 86901; 86923; J7050; P9016

== ENCOUNTER 2023-04-20 04:18 | Day surgery (SDC) | payer MEDICARE, OTHER ==
[2023-04-20 08:36] VITALS: BP 148/64
[2023-04-20 09:05] LABS: Hematocrit 27.3 % (37.0-53.0); Hemoglobin 9.2 g/dL (13.5-17.5); Mean Corpuscular HGB Conc 33.7 g/dL (31.5-36.5); Mean Corpuscular Volume 98 fL (80-100); Mean Platelet Volume 10.9 fL (9.1-12.4); Platelet Count 74 K/mm3 (150-400); RDW Coefficient Variation 22.7 % (11.7-14.2); Red Blood Cell Count 2.79 M/mm3 (4.30-5.90); White Blood Cell Count 1.66 K/mm3 (4.00-11.30)
[2023-04-20 09:23] LABS: BAND PERCENT MAN 4 % (0-8); BASOPHILS ABSOLUTE MAN 0.06 K/mm3 (0.00-0.23); BASOPHILS PERCENT MAN 4 % (0-2); BLASTS PERCENT MAN 8 % (0-0); EOSINOPHILS PERCENT MAN 0 % (0-6); LYMPHOCYTES % ATYPICAL MANUAL 6 % (0-0); LYMPHOCYTES ABSOLUTE MAN 0.39 K/mm3 (0.84-5.20); LYMPHOCYTES PERCENT MAN 18 % (21-46); MONOCYTES ABSOLUTE MAN 0.06 K/mm3 (0.16-1.47); MONOCYTES PERCENT MAN 4 % (4-13); NEUTROPHILS ABSOLUTE MAN 0.99 K/mm3 (1.96-9.15); SEG NEUTROPHILS PERCENT MAN 56 % (41-73); TOTAL CELLS COUNTED 50
== END 2023-04-20 08:53 | disposition home or self-care (01) ==
LOC: ATC 04:18
PROVIDERS: Internal Medicine Hematology & Oncology
DX: C92.00 Acute myeloblastic leukemia, not having achieved remission (principal); D70.8 Other neutropenia; K21.9 Gastro-esophageal reflux disease without esophagitis; E78.5 Hyperlipidemia, unspecified; E03.9 Hypothyroidism, unspecified; M19.042 Primary osteoarthritis, left hand; M19.041 Primary osteoarthritis, right hand; Z87.891 Personal history of nicotine dependence
CPT/HCPCS: 36592; 85025

== ENCOUNTER 2023-04-22 02:14 | Emergency (ER) | payer MEDICARE, OTHER ==
[~2023-04-22] VITALS: Ht 175.3 cm; Wt 77.1 kg
[2023-04-22 03:05] LABS: Hematocrit 24.7 % (37.0-53.0); Hemoglobin 8.2 g/dL (13.5-17.5); Mean Corpuscular HGB 32.8 pg (26.0-34.0); Mean Corpuscular HGB Conc 33.2 g/dL (31.5-36.5); Mean Corpuscular Volume 99 fL (80-100); Mean Platelet Volume 10.8 fL (9.1-12.4); Platelet Count 82 K/mm3 (150-400); RDW Standard Deviation 81.2 fL (35.1-46.3); White Blood Cell Count 2.37 K/mm3 (4.00-11.30)
[2023-04-22 03:21] LABS: Albumin, Blood 3.3 g/dL (3.4-5.0); Bilirubin, Total 0.3 mg/dL (0.1-1.0); Bun/Creatinine Ratio 23.3 (12.0-20.0); Calcium, Blood 8.8 mg/dL (8.5-10.1); Creatinine, Blood 1.03 mg/dL (0.60-1.20); Globulin, Blood 3.2 g/dL (2.2-4.0); Potassium, Blood 4.1 mmol/L (3.5-5.5); Total Protein, Blood 6.5 g/dL (6.4-8.2)
[2023-04-22 03:42] LABS: BAND PERCENT MAN 2 % (0-8); BASOPHILS PERCENT MAN 0 % (0-2); EOSINOPHILS ABSOLUTE MAN 0.02 K/mm3 (0.00-0.68); EOSINOPHILS PERCENT MAN 1 % (0-6); LYMPHOCYTES % ATYPICAL MANUAL 2 % (0-0); LYMPHOCYTES ABSOLUTE MAN 0.71 K/mm3 (0.84-5.20); LYMPHOCYTES PERCENT MAN 28 % (21-46); METAMYELOCYTE ABSOLUTE MAN 0.02 K/mm3 (0.00-0.00); METAMYELOCYTE PERCENT MAN 1 % (0-0); MONOCYTES ABSOLUTE MAN 0.14 K/mm3 (0.16-1.47); MONOCYTES PERCENT MAN 6 % (4-13); MYELOCYTE ABSOLUTE MAN 0.04 K/mm3 (0.00-0.00); MYELOCYTE PERCENT MAN 2 % (0-0); NEUTROPHILS ABSOLUTE MAN 1.39 K/mm3 (1.96-9.15); OTHER CELL PERCENT MAN 1 % (0-0); SEG NEUTROPHILS PERCENT MAN 57 % (41-73); TOTAL CELLS COUNTED 100
[2023-04-22 04:01] VITALS: BP 142/78
[2023-04-22 04:04] LABS: Source, Urine Clean Catch
[2023-04-22 04:07] LABS: Bilirubin, Urine Neg (Neg); Blood, Urine 2+ (Neg); Glucose Qualitative, Urine Neg (Neg); Ketones, Urine Neg (Neg); Leukocyte Esterase, Urine Neg (Neg); Nitrite, Urine Neg (Neg); Protein, Urine Neg (Neg); Urobilinogen, Urine NORM (Normal)
[2023-04-22 04:08] LABS: Magnesium, Blood 2.2 mg/dL (1.6-2.4); Phosphorus, Blood 3.7 mg/dL (2.5-4.9); Thyroid Stimulating Hormone 4.98 uIU/mL (0.360-4.800)
[2023-04-22 04:50] LABS: Appearance, Urine Clear (Clear); Bacteria Few /hpf; Color, Urine Yellow (P-Yellow); Red Blood Cells, Urine 0-2 /hpf (0-2); Squamous Epithelial Cells Few /hpf (Few); White Blood Cells, Urine 0-2 /hpf (0-5)
== END 2023-04-22 08:19 | disposition home or self-care (01) ==
LOC: ER 02:14
PROVIDERS: Emergency Medicine
DX: E86.0 Dehydration (principal); Z79.899 Other long term (current) drug therapy
CPT/HCPCS: 71045; 80053; 81001; 83735; 84100; 84443; 84484; 85025; 86850; 86900; 86901; 93005; 93010; 96360; 96361; 99284-25; J7030

== ENCOUNTER 2023-04-27 00:33 | Day surgery (SDC) | payer MEDICARE, OTHER ==
[2023-04-27 08:56] VITALS: BP 164/54
[2023-04-27 09:06] LABS: BASOPHILS ABSOLUTE AUTO 0.02 K/mm3 (0.00-0.23); BASOPHILS PERCENT AUTO 1 % (0-2); EOSINOPHILS ABSOLUTE AUTO 0.01 K/mm3 (0.00-0.68); EOSINOPHILS PERCENT AUTO 0 % (0-6); Hematocrit 25.3 % (37.0-53.0); Hemoglobin 8.2 g/dL (13.5-17.5); Mean Corpuscular HGB 32.4 pg (26.0-34.0); Mean Corpuscular HGB Conc 32.4 g/dL (31.5-36.5); Mean Corpuscular Volume 100 fL (80-100); Mean Platelet Volume 10.5 fL (9.1-12.4); NRBC ABSOLUTE 0.09 K/mm3 (0.00-0.02); NRBC Auto 2.2 /100 WBC (0.0-0.2); Platelet Count 109 K/mm3 (150-400); RDW Coefficient Variation 23.1 % (11.7-14.2); Red Blood Cell Count 2.53 M/mm3 (4.30-5.90); White Blood Cell Count 4.05 K/mm3 (4.00-11.30)
[2023-04-27 09:07] LABS: IMMATURE GRAN ABSOLUTE AUTO 0.28 K/mm3 (0.00-0.10); IMMATURE GRAN PERCENT AUTO 7 % (0-1); LYMPHOCYTES ABSOLUTE AUTO 0.55 K/mm3 (0.84-5.20); LYMPHOCYTES PERCENT AUTO 14 % (21-46); MONOCYTES PERCENT AUTO 17 % (4-13); NEUTROPHILS ABSOLUTE AUTO 2.49 K/mm3 (1.96-9.15); NEUTROPHILS PERCENT AUTO 62 % (41-73)
== END 2023-04-27 22:53 | disposition home or self-care (01) ==
LOC: ATC 00:33
PROVIDERS: Internal Medicine Hematology & Oncology
DX: C92.00 Acute myeloblastic leukemia, not having achieved remission (principal); D70.8 Other neutropenia; K21.9 Gastro-esophageal reflux disease without esophagitis; E78.5 Hyperlipidemia, unspecified; E03.9 Hypothyroidism, unspecified; M19.042 Primary osteoarthritis, left hand; M19.041 Primary osteoarthritis, right hand; N52.9 Male erectile dysfunction, unspecified; Z87.891 Personal history of nicotine dependence; Z85.46 Personal history of malignant neoplasm of prostate
CPT/HCPCS: 36415; 36592; 80053; 84153; 84443; 85025

== ENCOUNTER 2023-05-05 04:41 | Day surgery (SDC) | payer MEDICARE, OTHER ==
[2023-05-04 11:44] VITALS: BP 140/62
[2023-05-04 12:34] LABS: Hematocrit 22.5 % (37.0-53.0); Hemoglobin 7.2 g/dL (13.5-17.5); Mean Corpuscular Volume 103 fL (80-100); Mean Platelet Volume 9.8 fL (9.1-12.4); NRBC ABSOLUTE 0.28 K/mm3 (0.00-0.02); NRBC Auto 3.9 /100 WBC (0.0-0.2); Platelet Count 143 K/mm3 (150-400); RDW Standard Deviation 87.1 fL (35.1-46.3); Red Blood Cell Count 2.18 M/mm3 (4.30-5.90); White Blood Cell Count 7.09 K/mm3 (4.00-11.30)
[2023-05-04 12:59] LABS: BAND PERCENT MAN 3 % (0-8); BASOPHILS PERCENT MAN 0 % (0-2); BLASTS PERCENT MAN 2 % (0-0); EOSINOPHILS ABSOLUTE MAN 0.35 K/mm3 (0.00-0.68); EOSINOPHILS PERCENT MAN 5 % (0-6); LYMPHOCYTES % ATYPICAL MANUAL 2 % (0-0); LYMPHOCYTES ABSOLUTE MAN 0.77 K/mm3 (0.84-5.20); LYMPHOCYTES PERCENT MAN 9 % (21-46); MONOCYTES ABSOLUTE MAN 0.21 K/mm3 (0.16-1.47); MONOCYTES PERCENT MAN 3 % (4-13); MYELOCYTE ABSOLUTE MAN 0.14 K/mm3 (0.00-0.00); MYELOCYTE PERCENT MAN 2 % (0-0); NEUTROPHILS ABSOLUTE MAN 5.45 K/mm3 (1.96-9.15); SEG NEUTROPHILS PERCENT MAN 74 % (41-73); TOTAL CELLS COUNTED 100
[2023-05-05 08:17] VITALS: BP 161/64
[2023-05-05 08:35] VITALS: BP 131/66
[2023-05-05 09:37] VITALS: BP 129/84
[2023-05-05 09:55] VITALS: BP 153/63
== END 2023-05-05 09:56 | disposition home or self-care (01) ==
LOC: ATC 04:41
PROVIDERS: Internal Medicine Hematology & Oncology
DX: C92.00 Acute myeloblastic leukemia, not having achieved remission (principal); D70.8 Other neutropenia
CPT/HCPCS: 36430; 36592; 85025; 86850; 86900; 86901; 86923; J7050; P9016

== ENCOUNTER 2023-05-11 02:49 | Day surgery (SDC) | payer MEDICARE, OTHER ==
[2023-05-11 09:12] VITALS: BP 155/70
[2023-05-11 09:48] LABS: Hematocrit 28.5 % (37.0-53.0); Hemoglobin 9.2 g/dL (13.5-17.5); Mean Corpuscular HGB 32.6 pg (26.0-34.0); Mean Corpuscular HGB Conc 32.3 g/dL (31.5-36.5); Mean Corpuscular Volume 101 fL (80-100); Mean Platelet Volume 10.2 fL (9.1-12.4); NRBC ABSOLUTE 0.46 K/mm3 (0.00-0.02); NRBC Auto 4.6 /100 WBC (0.0-0.2); Platelet Count 181 K/mm3 (150-400); RDW Coefficient Variation 24.2 % (11.7-14.2); RDW Standard Deviation 84.3 fL (35.1-46.3); Red Blood Cell Count 2.82 M/mm3 (4.30-5.90); White Blood Cell Count 10.07 K/mm3 (4.00-11.30)
[2023-05-11 12:57] LABS: BAND PERCENT MAN 4 % (0-8); BASOPHILS PERCENT MAN 2 % (0-2); BLASTS PERCENT MAN 8 % (0-0); EOSINOPHILS PERCENT MAN 0 % (0-6); LYMPHOCYTES % ATYPICAL MANUAL 1 % (0-0); LYMPHOCYTES PERCENT MAN 10 % (21-46); METAMYELOCYTE PERCENT MAN 6 % (0-0); MONOCYTES PERCENT MAN 1 % (4-13); MYELOCYTE PERCENT MAN 8 % (0-0); NEUTROPHILS ABSOLUTE MAN 6.44 K/mm3 (1.96-9.15); SEG NEUTROPHILS PERCENT MAN 60 % (41-73); TOTAL CELLS COUNTED 100
== END 2023-05-11 09:32 | disposition home or self-care (01) ==
LOC: ATC 02:49
PROVIDERS: Registered Nurse Oncology
DX: C92.00 Acute myeloblastic leukemia, not having achieved remission (principal); D70.8 Other neutropenia; K21.9 Gastro-esophageal reflux disease without esophagitis; E78.5 Hyperlipidemia, unspecified; E03.9 Hypothyroidism, unspecified; Z79.899 Other long term (current) drug therapy
CPT/HCPCS: 36592; 85025

== ENCOUNTER 2023-05-18 00:44 | Day surgery (SDC) | payer MEDICARE, OTHER ==
[2023-05-18 09:47] VITALS: BP 151/62
[2023-05-18 10:06] LABS: Hematocrit 29.5 % (37.0-53.0); Hemoglobin 9.1 g/dL (13.5-17.5); Mean Corpuscular HGB 31.6 pg (26.0-34.0); Mean Corpuscular HGB Conc 30.8 g/dL (31.5-36.5); Mean Corpuscular Volume 102 fL (80-100); Mean Platelet Volume 9.8 fL (9.1-12.4); NRBC ABSOLUTE 0.87 K/mm3 (0.00-0.02); NRBC Auto 5.2 /100 WBC (0.0-0.2); Platelet Count 166 K/mm3 (150-400); RDW Coefficient Variation 24.4 % (11.7-14.2); RDW Standard Deviation 87.5 fL (35.1-46.3); Red Blood Cell Count 2.88 M/mm3 (4.30-5.90); White Blood Cell Count 16.81 K/mm3 (4.00-11.30)
[2023-05-18 10:39] LABS: BAND PERCENT MAN 5 % (0-8); BASOPHILS PERCENT MAN 0 % (0-2); EOSINOPHILS ABSOLUTE MAN 0.16 K/mm3 (0.00-0.68); EOSINOPHILS PERCENT MAN 1 % (0-6); LYMPHOCYTES % ATYPICAL MANUAL 1 % (0-0); LYMPHOCYTES ABSOLUTE MAN 1.51 K/mm3 (0.84-5.20); LYMPHOCYTES PERCENT MAN 8 % (21-46); METAMYELOCYTE ABSOLUTE MAN 0.33 K/mm3 (0.00-0.00); METAMYELOCYTE PERCENT MAN 2 % (0-0); MONOCYTES ABSOLUTE MAN 0.67 K/mm3 (0.16-1.47); MONOCYTES PERCENT MAN 4 % (4-13); MYELOCYTE ABSOLUTE MAN 1.84 K/mm3 (0.00-0.00); MYELOCYTE PERCENT MAN 11 % (0-0); NEUTROPHILS ABSOLUTE MAN 11.43 K/mm3 (1.96-9.15); SEG NEUTROPHILS PERCENT MAN 63 % (41-73); TOTAL CELLS COUNTED 100
[2023-05-18 10:40] LABS: BLASTS PERCENT MAN 2 % (0-0); OTHER CELL PERCENT MAN 1 % (0-0); PROMYELOCYTE ABSOLUTE MAN 0.33 K/mm3 (0.00-0.00); PROMYELOCYTE PERCENT MAN 2 % (0-0)
== END 2023-05-18 09:50 | disposition home or self-care (01) ==
LOC: ATC 00:44
PROVIDERS: Internal Medicine Hematology & Oncology
DX: C92.00 Acute myeloblastic leukemia, not having achieved remission (principal); D70.8 Other neutropenia; E03.9 Hypothyroidism, unspecified; E78.5 Hyperlipidemia, unspecified; M19.042 Primary osteoarthritis, left hand; M19.041 Primary osteoarthritis, right hand
CPT/HCPCS: 36592; 85025

== ENCOUNTER 2023-05-25 03:40 | Day surgery (SDC) | payer MEDICARE, OTHER ==
[2023-05-25 09:35] VITALS: BP 175/77
[2023-05-25 10:07] LABS: Hemoglobin 9.3 g/dL (13.5-17.5); Mean Corpuscular HGB 31.5 pg (26.0-34.0); Mean Corpuscular Volume 105 fL (80-100); Mean Platelet Volume 10.4 fL (9.1-12.4); NRBC ABSOLUTE 0.69 K/mm3 (0.00-0.02); NRBC Auto 3.9 /100 WBC (0.0-0.2); Platelet Count 170 K/mm3 (150-400); RDW Coefficient Variation 23.6 % (11.7-14.2); Red Blood Cell Count 2.95 M/mm3 (4.30-5.90); White Blood Cell Count 17.74 K/mm3 (4.00-11.30)
[2023-05-25 10:41] LABS: BAND PERCENT MAN 16 % (0-8); BASOPHILS PERCENT MAN 0 % (0-2); EOSINOPHILS ABSOLUTE MAN 0.17 K/mm3 (0.00-0.68); EOSINOPHILS PERCENT MAN 1 % (0-6); LYMPHOCYTES ABSOLUTE MAN 3.01 K/mm3 (0.84-5.20); LYMPHOCYTES PERCENT MAN 17 % (21-46); METAMYELOCYTE ABSOLUTE MAN 0.17 K/mm3 (0.00-0.00); METAMYELOCYTE PERCENT MAN 1 % (0-0); MONOCYTES ABSOLUTE MAN 0.35 K/mm3 (0.16-1.47); MONOCYTES PERCENT MAN 2 % (4-13); MYELOCYTE ABSOLUTE MAN 1.59 K/mm3 (0.00-0.00); MYELOCYTE PERCENT MAN 9 % (0-0); NEUTROPHILS ABSOLUTE MAN 12.06 K/mm3 (1.96-9.15); SEG NEUTROPHILS PERCENT MAN 52 % (41-73); TOTAL CELLS COUNTED 100
[2023-05-25 10:42] LABS: BLASTS PERCENT MAN 2 % (0-0)
== END 2023-05-25 09:40 | disposition home or self-care (01) ==
LOC: ATC 03:40
PROVIDERS: Internal Medicine Hematology & Oncology
DX: C92.00 Acute myeloblastic leukemia, not having achieved remission (principal); D70.8 Other neutropenia; D63.0 Anemia in neoplastic disease
CPT/HCPCS: 36592; 85025; 99211

== ENCOUNTER 2023-05-31 09:54 | Day surgery (SDC) | payer MEDICARE, OTHER ==
[2023-05-31 11:38] VITALS: BP 166/75
[2023-05-31 12:02] LABS: Hematocrit 30.3 % (37.0-53.0); Mean Corpuscular HGB 31.4 pg (26.0-34.0); Mean Corpuscular HGB Conc 29.7 g/dL (31.5-36.5); Mean Corpuscular Volume 106 fL (80-100); NRBC ABSOLUTE 0.69 K/mm3 (0.00-0.02); NRBC Auto 3.2 /100 WBC (0.0-0.2); Platelet Count 144 K/mm3 (150-400); RDW Coefficient Variation 23.2 % (11.7-14.2); RDW Standard Deviation 89.6 fL (35.1-46.3); Red Blood Cell Count 2.87 M/mm3 (4.30-5.90); White Blood Cell Count 21.86 K/mm3 (4.00-11.30)
[2023-05-31 12:29] LABS: Albumin, Blood 3.5 g/dL (3.4-5.0); Bilirubin, Total 0.7 mg/dL (0.1-1.0); Bun/Creatinine Ratio 15.3 (12.0-20.0); Calcium, Blood 8.9 mg/dL (8.5-10.1); Creatinine, Blood 1.18 mg/dL (0.60-1.20); Globulin, Blood 3.4 g/dL (2.2-4.0); Potassium, Blood 3.9 mmol/L (3.5-5.5); Total Protein, Blood 6.9 g/dL (6.4-8.2)
[2023-05-31 14:00] LABS: BAND PERCENT MAN 3 % (0-8); BASOPHILS ABSOLUTE MAN 0.43 K/mm3 (0.00-0.23); BASOPHILS PERCENT MAN 2 % (0-2); BLASTS PERCENT MAN 15 % (0-0); EOSINOPHILS ABSOLUTE MAN 0.43 K/mm3 (0.00-0.68); EOSINOPHILS PERCENT MAN 2 % (0-6); LYMPHOCYTES ABSOLUTE MAN 0.43 K/mm3 (0.84-5.20); LYMPHOCYTES PERCENT MAN 2 % (21-46); METAMYELOCYTE ABSOLUTE MAN 0.43 K/mm3 (0.00-0.00); METAMYELOCYTE PERCENT MAN 2 % (0-0); MONOCYTES ABSOLUTE MAN 0.21 K/mm3 (0.16-1.47); MONOCYTES PERCENT MAN 1 % (4-13); MYELOCYTE ABSOLUTE MAN 2.18 K/mm3 (0.00-0.00); MYELOCYTE PERCENT MAN 10 % (0-0); NEUTROPHILS ABSOLUTE MAN 13.99 K/mm3 (1.96-9.15); PROMYELOCYTE ABSOLUTE MAN 0.43 K/mm3 (0.00-0.00); PROMYELOCYTE PERCENT MAN 2 % (0-0); SEG NEUTROPHILS PERCENT MAN 61 % (41-73); TOTAL CELLS COUNTED 100
== END 2023-05-31 11:58 | disposition home or self-care (01) ==
LOC: ATC 09:54
PROVIDERS: Internal Medicine Hematology & Oncology
DX: C92.00 Acute myeloblastic leukemia, not having achieved remission (principal); D70.8 Other neutropenia; D63.0 Anemia in neoplastic disease; K21.9 Gastro-esophageal reflux disease without esophagitis; E78.5 Hyperlipidemia, unspecified; Z86.010 Personal history of colon polyps; E03.9 Hypothyroidism, unspecified
CPT/HCPCS: 36592; 80053; 85025

== ENCOUNTER 2023-06-08 00:27 | Day surgery (SDC) | payer MEDICARE, OTHER ==
[2023-06-08 09:33] VITALS: BP 147/70
[2023-06-08 09:42] LABS: Hematocrit 30.6 % (37.0-53.0); Hemoglobin 9.2 g/dL (13.5-17.5); Mean Corpuscular HGB 32.1 pg (26.0-34.0); Mean Corpuscular HGB Conc 30.1 g/dL (31.5-36.5); Mean Corpuscular Volume 107 fL (80-100); Mean Platelet Volume 10.2 fL (9.1-12.4); NRBC ABSOLUTE 0.56 K/mm3 (0.00-0.02); NRBC Auto 2.9 /100 WBC (0.0-0.2); Platelet Count 154 K/mm3 (150-400); RDW Coefficient Variation 22.2 % (11.7-14.2); RDW Standard Deviation 85.7 fL (35.1-46.3); Red Blood Cell Count 2.87 M/mm3 (4.30-5.90); White Blood Cell Count 19.49 K/mm3 (4.00-11.30)
[2023-06-08 10:08] LABS: BAND PERCENT MAN 5 % (0-8); BASOPHILS PERCENT MAN 0 % (0-2); BLASTS PERCENT MAN 2 % (0-0); EOSINOPHILS ABSOLUTE MAN 0.19 K/mm3 (0.00-0.68); EOSINOPHILS PERCENT MAN 1 % (0-6); LYMPHOCYTES ABSOLUTE MAN 1.75 K/mm3 (0.84-5.20); LYMPHOCYTES PERCENT MAN 9 % (21-46); METAMYELOCYTE ABSOLUTE MAN 1.36 K/mm3 (0.00-0.00); METAMYELOCYTE PERCENT MAN 7 % (0-0); MONOCYTES PERCENT MAN 0 % (4-13); MYELOCYTE ABSOLUTE MAN 0.77 K/mm3 (0.00-0.00); MYELOCYTE PERCENT MAN 4 % (0-0); SEG NEUTROPHILS PERCENT MAN 72 % (41-73); TOTAL CELLS COUNTED 100
== END 2023-06-08 09:35 | disposition home or self-care (01) ==
LOC: ATC 00:27
PROVIDERS: Internal Medicine Hematology & Oncology
DX: C92.00 Acute myeloblastic leukemia, not having achieved remission (principal); D70.8 Other neutropenia; K21.9 Gastro-esophageal reflux disease without esophagitis; E78.5 Hyperlipidemia, unspecified; M19.042 Primary osteoarthritis, left hand; M19.041 Primary osteoarthritis, right hand; Z86.010 Personal history of colon polyps; Z87.891 Personal history of nicotine dependence
CPT/HCPCS: 36592; 85025

== ENCOUNTER 2023-06-18 00:31 | Day surgery (SDC) | payer MEDICARE, OTHER ==
[2023-06-15 08:52] VITALS: BP 153/79
[2023-06-15 10:13] LABS: Hematocrit 28.5 % (37.0-53.0); Hemoglobin 8.6 g/dL (13.5-17.5); Mean Corpuscular HGB 31.2 pg (26.0-34.0); Mean Corpuscular HGB Conc 30.2 g/dL (31.5-36.5); Mean Corpuscular Volume 103 fL (80-100); Mean Platelet Volume 9.7 fL (9.1-12.4); NRBC ABSOLUTE 0.32 K/mm3 (0.00-0.02); Platelet Count 147 K/mm3 (150-400); RDW Standard Deviation 82.5 fL (35.1-46.3); Red Blood Cell Count 2.76 M/mm3 (4.30-5.90); White Blood Cell Count 10.58 K/mm3 (4.00-11.30)
[2023-06-15 10:42] LABS: BAND PERCENT MAN 7 % (0-8); BASOPHILS PERCENT MAN 1 % (0-2); BLASTS PERCENT MAN 2 % (0-0); EOSINOPHILS ABSOLUTE MAN 0.21 K/mm3 (0.00-0.68); EOSINOPHILS PERCENT MAN 2 % (0-6); LYMPHOCYTES ABSOLUTE MAN 0.74 K/mm3 (0.84-5.20); LYMPHOCYTES PERCENT MAN 7 % (21-46); METAMYELOCYTE ABSOLUTE MAN 0.31 K/mm3 (0.00-0.00); METAMYELOCYTE PERCENT MAN 3 % (0-0); MONOCYTES ABSOLUTE MAN 0.21 K/mm3 (0.16-1.47); MONOCYTES PERCENT MAN 2 % (4-13); MYELOCYTE ABSOLUTE MAN 0.31 K/mm3 (0.00-0.00); MYELOCYTE PERCENT MAN 3 % (0-0); NEUTROPHILS ABSOLUTE MAN 8.25 K/mm3 (1.96-9.15); PROMYELOCYTE ABSOLUTE MAN 0.21 K/mm3 (0.00-0.00); PROMYELOCYTE PERCENT MAN 2 % (0-0); SEG NEUTROPHILS PERCENT MAN 71 % (41-73); TOTAL CELLS COUNTED 100
[2023-06-18] MEDS ORDERED: NS 250 ML IV SCH (06:55)
[2023-06-18 13:36] VITALS: BP 175/71
[2023-06-18 13:54] VITALS: BP 126/59
[2023-06-18 15:10] VITALS: BP 135/69
== END 2023-06-18 15:10 | disposition home or self-care (01) ==
LOC: ATC 00:31
PROVIDERS: Internal Medicine Hematology & Oncology
DX: C92.00 Acute myeloblastic leukemia, not having achieved remission (principal); D70.8 Other neutropenia; K21.9 Gastro-esophageal reflux disease without esophagitis; E03.9 Hypothyroidism, unspecified; E78.5 Hyperlipidemia, unspecified; Z87.891 Personal history of nicotine dependence
CPT/HCPCS: 36430; 36592; 85025; 86850; 86900; 86901; 86923; J7050; P9016

== ENCOUNTER 2023-06-22 01:58 | Day surgery (SDC) | payer MEDICARE, OTHER ==
[2023-06-22 09:15] VITALS: BP 163/97
[2023-06-22 09:48] LABS: BASOPHILS ABSOLUTE AUTO 0.05 K/mm3 (0.00-0.23); BASOPHILS PERCENT AUTO 1 % (0-2); EOSINOPHILS ABSOLUTE AUTO 0.14 K/mm3 (0.00-0.68); EOSINOPHILS PERCENT AUTO 2 % (0-6); Hematocrit 30.1 % (37.0-53.0); IMMATURE GRAN ABSOLUTE AUTO 0.56 K/mm3 (0.00-0.10); IMMATURE GRAN PERCENT AUTO 9 % (0-1); LYMPHOCYTES PERCENT AUTO 8 % (21-46); MONOCYTES ABSOLUTE AUTO 0.35 K/mm3 (0.16-1.47); MONOCYTES PERCENT AUTO 6 % (4-13); Mean Corpuscular HGB 31.1 pg (26.0-34.0); Mean Corpuscular HGB Conc 29.9 g/dL (31.5-36.5); Mean Corpuscular Volume 104 fL (80-100); Mean Platelet Volume 10.7 fL (9.1-12.4); NEUTROPHILS ABSOLUTE AUTO 4.46 K/mm3 (1.96-9.15); NEUTROPHILS PERCENT AUTO 74 % (41-73); NRBC Auto 1.7 /100 WBC (0.0-0.2); Platelet Count 96 K/mm3 (150-400); RDW Coefficient Variation 20.9 % (11.7-14.2); RDW Standard Deviation 79.7 fL (35.1-46.3); Red Blood Cell Count 2.89 M/mm3 (4.30-5.90); White Blood Cell Count 6.06 K/mm3 (4.00-11.30)
== END 2023-06-22 09:30 | disposition home or self-care (01) ==
LOC: ATC 01:58
PROVIDERS: Internal Medicine Hematology & Oncology
DX: C92.00 Acute myeloblastic leukemia, not having achieved remission (principal); D70.8 Other neutropenia; K21.9 Gastro-esophageal reflux disease without esophagitis; E78.5 Hyperlipidemia, unspecified; E03.9 Hypothyroidism, unspecified; Z86.010 Personal history of colon polyps
CPT/HCPCS: 36592; 85025

== ENCOUNTER 2023-08-14 09:10 | Emergency (ER) | payer MEDICARE, OTHER ==
[~2023-08-14] VITALS: Ht 175.3 cm; Wt 80.3 kg
[~2023-08-14 09:10] MED LIST changes: -BRIMONIDINE TART5 M2; +BRIMONIDINE TART5 M2 BOTHEYES; -LATANOPROST2.5 M3; +LATANOPROST2.5 M3 BOTHEYES; +OXYB5 PO; +PERMETHRIN TOP; +POTCHL20ER PO; +TAMSULOSIN HCL0.4 M1 PO; +VISBIOME 112.51 EACH PO
[2023-08-14] MEDS ORDERED: Ondansetron HCl 2 MG / ML 2ML Vial IV ONE (10:10)
[2023-08-14 10:17] LABS: Hematocrit 23.3 % (37.0-53.0); Hemoglobin 7.2 g/dL (13.5-17.5); Mean Corpuscular HGB 30.9 pg (26.0-34.0); Mean Corpuscular HGB Conc 30.9 g/dL (31.5-36.5); Mean Corpuscular Volume 100 fL (80-100); Mean Platelet Volume 9.9 fL (9.1-12.4); NRBC ABSOLUTE 0.65 K/mm3 (0.00-0.02); NRBC Auto 0.3 /100 WBC (0.0-0.2); Platelet Count 61 K/mm3 (150-400); RDW Coefficient Variation 21.2 % (11.7-14.2); RDW Standard Deviation 73.4 fL (35.1-46.3); Red Blood Cell Count 2.33 M/mm3 (4.30-5.90)
[2023-08-14 10:23] LABS: White Blood Cell Count 199.33 K/mm3 (4.00-11.30)
[2023-08-14 10:40] LABS: Albumin, Blood 3.5 g/dL (3.4-5.0); Bilirubin, Total 0.9 mg/dL (0.1-1.0); Bun/Creatinine Ratio 11.4 (12.0-20.0); Calcium, Blood 8.8 mg/dL (8.5-10.1); Creatinine, Blood 2.46 mg/dL (0.60-1.20); Globulin, Blood 3.6 g/dL (2.2-4.0); Magnesium, Blood 2.2 mg/dL (1.6-2.4); Potassium, Blood 3.7 mmol/L (3.5-5.5); Total Protein, Blood 7.1 g/dL (6.4-8.2)
[2023-08-14 10:45] LABS: BAND PERCENT MAN 13 % (0-8); BASOPHILS PERCENT MAN 0 % (0-2); BLASTS PERCENT MAN 1 % (0-0); EOSINOPHILS PERCENT MAN 0 % (0-6); LYMPHOCYTES ABSOLUTE MAN 1.99 K/mm3 (0.84-5.20); LYMPHOCYTES PERCENT MAN 1 % (21-46); MONOCYTES ABSOLUTE MAN 1.99 K/mm3 (0.16-1.47); MONOCYTES PERCENT MAN 1 % (4-13); MYELOCYTE ABSOLUTE MAN 3.98 K/mm3 (0.00-0.00); MYELOCYTE PERCENT MAN 2 % (0-0); NEUTROPHILS ABSOLUTE MAN 189.36 K/mm3 (1.96-9.15); SEG NEUTROPHILS PERCENT MAN 82 % (41-73); TOTAL CELLS COUNTED 100
[2023-08-14] MEDS ORDERED: NS 1,000 ML IV SCH (11:15)
[2023-08-14 13:11] VITALS: BP 135/74
== END 2023-08-14 13:44 | disposition home or self-care (01) ==
LOC: ER 09:10
PROVIDERS: Physician Assistant
DX: R10.9 Unspecified abdominal pain (principal); C95.90 Leukemia, unspecified not having achieved remission; D64.9 Anemia, unspecified
CPT/HCPCS: 74177; 80053; 83690; 83735; 85025; 96361; 96374-59; 99284-25; J2405; J7030; Q9967

== ENCOUNTER 2023-08-16 12:40 | Observation (INO) | payer MEDICARE, OTHER ==
[~2023-08-16] VITALS: Ht 175.3 cm; Wt 81.4 kg
[2023-08-16] VITALS (14 sets, daily range): BP systolic 117–157; BP diastolic 59–92
[2023-08-16] MEDS ORDERED: NS 250 ML IV PRN (13:10)
--- NOTE | 2023-08-16 14:00 | NUR ---
PLT PLEASANT COOP A/O X3, TALKATIVE. RETIRED FROM [employer]. HAS LEUKEMIA. HERE TO GET PICC LINE AND 2 UNITS PRBC. SHORT ADMIT DONE. LINE PLACED. +2 EDEMA, BLE. H/R REG, NO MURMUR NOTED. PT STATES NO CHF. LUNGS CLEAR, RESP EASY, UNLABORED ON RA. BM SHORTLY UPON ADMIT. VOIDS URINAL AND SBA TO BATHROOM. BED INLOW POSITION, CALL LITE IN REACH, CALLS APPROP
--- NOTE | 2023-08-16 16:01 | NUR ---
BLOOD RECEIVED AT ROOM. PERSON HERE TO PLACE PICC. PICC PLACED. BLOOD STARTED [id number]
--- NOTE | 2023-08-16 19:11 | NUR ---
PT WALK IN ATC OVERFLOW. SHORT ADMIT DONE. HERE FOR 2 UNITS PRBC. AND PICC LINE PLACEMENT. ONE UNIT GIVEN, ONE IS CURRENTLY BEING ADMIN. PICC LINE PLACED MARLEN. PT DENIES PAIN, PT TLKING, A/O, QUITE PLEASANT, HAS BEEN RUNNING LIGHT TEMP. 99-100 SINCE ADMIT. LUNGS CONTINUE TO BE CLEAR. BED IN LOW POSITION, CALL LITE IN REACH, CALLS APPROP
--- NOTE | 2023-08-16 21:06 | NUR ---
Transfusion finished, pt DC Pt has finished transfusing his 2nd bag of blood, no issues noted. His family is now here to take him home.
--- NOTE | 2023-08-19 23:21 | NUR ---
REVIEWED INFO FOR CURRENT ADMISSION
== END 2023-08-16 21:09 | disposition home or self-care (01) ==
LOC: MEDS 13:04
PROVIDERS: ADMIT Internal Medicine Hematology & Oncology
DX: C92.00 Acute myeloblastic leukemia, not having achieved remission (principal)
CPT/HCPCS: 36415; 36430; 36569; 86850; 86900; 86901; 86923; C1751; J7050; P9016

== ENCOUNTER 2023-08-19 13:17 | Observation (INO) | payer MEDICARE, OTHER ==
[~2023-08-19] VITALS: Ht 175.3 cm; Wt 74.1 kg
[2023-08-19 14:26] LABS: Hematocrit 20.3 % (37.0-53.0); Hemoglobin 6.5 g/dL (13.5-17.5); Mean Corpuscular Volume 97 fL (80-100); Mean Platelet Volume 12.8 fL (9.1-12.4); NRBC ABSOLUTE 0.38 K/mm3 (0.00-0.02); NRBC Auto 0.2 /100 WBC (0.0-0.2)
[2023-08-19 14:33] LABS: Platelet Count 33 K/mm3 (150-400); White Blood Cell Count 200.09 K/mm3 (4.00-11.30)
[2023-08-19] MEDS ORDERED: NS 1,000 ML IV SCH ×2 (14:55→22:05)
[2023-08-19] MEDS ORDERED: Pantoprazole Sodium 40 MG Injection IV ONE (14:55)
[2023-08-19 15:01] LABS: BAND PERCENT MAN 44 % (0-8); BASOPHILS PERCENT MAN 0 % (0-2); EOSINOPHILS PERCENT MAN 0 % (0-6); LYMPHOCYTES PERCENT MAN 1 % (21-46); METAMYELOCYTE PERCENT MAN 9 % (0-0); MONOCYTES PERCENT MAN 1 % (4-13); MYELOCYTE PERCENT MAN 2 % (0-0); NEUTROPHILS ABSOLUTE MAN 172.07 K/mm3 (1.96-9.15); PROMYELOCYTE PERCENT MAN 1 % (0-0); SEG NEUTROPHILS PERCENT MAN 42 % (41-73); TOTAL CELLS COUNTED 100
[2023-08-19 15:13] LABS: Albumin, Blood 3.1 g/dL (3.4-5.0); Albumin/Globulin Ratio 1.1 (0.8-1.8); Bilirubin, Total 0.7 mg/dL (0.1-1.0); Bun/Creatinine Ratio 9.1 (12.0-20.0); Creatinine, Blood 6.68 mg/dL (0.60-1.20); Globulin, Blood 2.9 g/dL (2.2-4.0); Potassium, Blood 4.7 mmol/L (3.5-5.5)
[2023-08-19 15:16] LABS: International Normalized Ratio 1.18; Prothrombin Time Results 12.3 Sec (9.7-11.5)
[2023-08-19] MEDS ORDERED: FentaNYL Citrate 50 MCG/ML 2 ML Injection IV ONE (16:50)
[2023-08-19] MEDS ORDERED: LORazepam 2 MG/ML 1ML Injection IV ONE (16:50)
[2023-08-19] MEDS ORDERED: Ondansetron HCl 2 MG / ML 2ML Vial IV PRN (17:05)
[2023-08-19 19:05] VITALS: BP 127/61
[2023-08-19 19:28] VITALS: BP 133/59
--- NOTE | 2023-08-19 19:53 | NUR ---
PHYSICIAN COMMUNICATION CONTACTED GABI NOBLE TO NOTIFY HIM THAT THE PATIENT'S FAMILY WAS CONCERNED ABOUT THE PATIENT HE IS HAVING A DECREASED LEVEL OF CONSCIOUSNESS, ONLY WAKING UP FOR SHORT PERIODS PERIODS AND HAVING GARBLED SPEECH WITH DIFFICULTY GETTING HIS WORDS OUT. GABI NOBLE ORDERED A HEAD CT WITHOUT CONTRAST.
[2023-08-19 20:44] VITALS: BP 133/60
[2023-08-19] MEDS ORDERED: Famotidine 10 MG/ML 2ML Vial IV SCH (21:00)
[2023-08-19 21:43] VITALS: BP 134/66
[2023-08-19] MEDS ORDERED: LORazepam 2 MG/ML 1ML Injection IV PRN (22:10)
[2023-08-19 23:11] LABS: Hemoglobin 7.7 g/dL (13.5-17.5)
[2023-08-20 05:32] VITALS: BP 164/68
--- NOTE | 2023-08-20 05:44 | NUR ---
CHANGE IN CONDITION THIS RN WAS ASSESSING THE PATIENT AND NOTICED THAT HE WAS AGONAL BREATHING. TOOK HIS VITAL SIGNS AND HIS HEART RATE WAS IN THE 120'S AND SPO2 WAS IN THE 60'S. PLACED THE PATIENT ON NONREBREATHER AT 15 LITERS. PATIENT IS NONRESPONSIVE TO STERNAL RUB AND PUPILS ARE NONREACTIVE TO LIGHT. CALLED LAP WINDING MACHINE OPERATORARIS TO THE ROOM AND WE DISCUSSED WITH THE PATIENT'S FAMILY WHAT THEIR WISHES ARE FOR THE PATIENT. THE REITERATED THAT THEY JUST WANT TO KEEP THE PATIENT COMFORTABLE AND DON'T WANT INTUBATION OR CHEST COMPRESSIONS. CONTACTED DR WILCOX AND UPDATED HIM ON THE PATIENT'S CHANGE IN CONDITION.
[2023-08-20 05:53] LABS: Hemoglobin 8.2 g/dL (13.5-17.5); Mean Corpuscular HGB 29.1 pg (26.0-34.0); Mean Corpuscular HGB Conc 29.3 g/dL (31.5-36.5); Mean Corpuscular Volume 99 fL (80-100); Mean Platelet Volume 9.6 fL (9.1-12.4); NRBC ABSOLUTE 0.59 K/mm3 (0.00-0.02); NRBC Auto 0.2 /100 WBC (0.0-0.2); RDW Standard Deviation 73.2 fL (35.1-46.3); Red Blood Cell Count 2.82 M/mm3 (4.30-5.90)
[2023-08-20] MEDS ORDERED: Levothyroxine Sodium 0.1 MG Tab PO SCH (06:00)
[2023-08-20 06:16] LABS: Platelet Count 40 K/mm3 (150-400); White Blood Cell Count 304.04 K/mm3 (4.00-11.30)
[2023-08-20 06:31] LABS: Bun/Creatinine Ratio 9.4 (12.0-20.0); Calcium, Blood 8.1 mg/dL (8.5-10.1); Creatinine, Blood 7.25 mg/dL (0.60-1.20); Magnesium, Blood 2.4 mg/dL (1.6-2.4)
--- NOTE | 2023-08-20 07:30 | NUR ---
BEGINNING OF SHIFT NOTE: RECEIVED BEDSIDE REPORTS FROM MANISHA MENG RN AT 0700. PATIENT UNRESPONSSIVE, ON NONREBREATHER MASK c AGONAL BREATHING, RESP 5 BREATHS/MIN. PATIENT FAMILY'S AT BEDSIDE. AT 0705, SON STEP OUT THE ROOM AND NOTIFIED THIS RN AND MANISHA MENG RN OUTSIDE THE ROOM THAT PATIENT PASS. THIS RN AND MANISHA ASSESS PATIENT NO PULSES NOTED TOD 0705. NOTIFIED SPRINKLER HELPER, MAGDALENA HEAD. CALLED DR. BARNEY AT 0725, BUT NOT ABLE AT THIS TIME AND GOES TO [employer]. THIS RN LEFT A MESSAGE TO CALL BACK AT [phone].
--- NOTE | 2023-08-20 07:53 | NUR ---
CALL BACK NOTE: RECEIVED A CALL BACK FROM DR. BARNEY AT [phone]. NOTIFIED DR. BARNEY AT THIS TIME REGARDING PATIENT TOD.
[2023-08-20] MEDS ORDERED: Tamsulosin HCl 0.4 MG Cap PO SCH (09:00)
--- NOTE | 2023-08-20 10:06 | NUR ---
FINAL NOTE: PATIENT TOD AT 0705. POST MORTEM CARE WAS DONE BY [facility]. ALL PATIENT PERSONAL BELONGINGS WERE SENT HOME c THE PATIENT SPOUSE THIS AM. PATIENT LEFT THE ROOM AT 0915 AND WAS TRANSPORTED VIA GURNEY BY [facility].
== END 2023-08-20 07:05 ==
LOC: ER 13:17 → MEDS 13:18 → ENPENDDIS 08-20 08:42
PROVIDERS: Student in an Organized Health Care Education/Training Program; ADMIT Family Medicine
DX: K92.2 Gastrointestinal hemorrhage, unspecified (principal); D62 Acute posthemorrhagic anemia; E03.9 Hypothyroidism, unspecified; D69.6 Thrombocytopenia, unspecified; J96.01 Acute respiratory failure with hypoxia; E78.5 Hyperlipidemia, unspecified; N17.9 Acute kidney failure, unspecified; Z66 Do not resuscitate
CPT/HCPCS: 36430; 70450; 80048; 80053; 82272; 83735; 85014; 85018; 85025; 85027; 85610; 86850; 86900; 86901; 86923; 93005; 93010; 96361; 96374; 96375; 99285-25; C9113; G0378; J2060; J3010; J7030; P9016